=== PATIENT | female | born 1965 | race Caucasian/White ===

== ENCOUNTER 2016-02-13 07:03 | Inpatient (IN) | payer BC ==
[2016-02-11 16:20] VITALS: BMI 26.4
[2016-02-13] MEDS ORDERED: METHYLENE BLUE 1% 10 MG/1 ML VIAL ONE (07:59)
[2016-02-13] MEDS ORDERED: MIDAZOLAM HCL 2 MG/2 ML SINGLE DOSE VIAL ONE ×2 (08:28)
[2016-02-13] MEDS ORDERED: PROPOFOL 20 ML ONE ×16 (08:28→14:00)
[2016-02-13] MEDS ORDERED: EPINEPHrine/PF 1 MG/1 ML (1:1,000) AMPULE ONE (08:34)
[2016-02-13] MEDS ORDERED: DEXAMETHASONE SOD PHOSPHATE/PF 10 MG/ML SDV ONE (08:34)
[2016-02-13] MEDS ORDERED: LIDOCAINE HCL 1%, 10 MG/ML (20ML VIAL) ONE (08:34)
[2016-02-13] MEDS ORDERED: BUPIVACAINE HCL/PF 0.5% (5MG/ML) 10 ML VIAL ONE (08:35)
[2016-02-13] MEDS ORDERED: METHYLENE BLUE 1% 10 MG/1 ML VIAL NR ONE (10:30)
[2016-02-13] MEDS ORDERED: ceFAZolin SODIUM 1 GM VIAL IVPB ONE (10:35)
[2016-02-13] MEDS ORDERED: ceFAZolin SODIUM 1 GM VIAL ONE ×2 (10:37→14:24)
[2016-02-13] MEDS ORDERED: HYDROmorphone HCL/PF 1 MG/ML VIAL (FOR PYXIS CHARGING ONLY) ONE ×2 (10:53→11:38)
[2016-02-13] MEDS ORDERED: ONDANSETRON 4 MG/2 ML VIAL ONE ×2 (11:02→14:44)
[2016-02-13] MEDS ORDERED: DEXAMETHASONE SOD PHOSPHATE 4 MG/1 ML VIAL ONE (11:02)
[2016-02-13] MEDS ORDERED: SCOPOLAMINE HYDROBROMIDE 1 PATCH PATCH.TD72 ONE (11:13)
[2016-02-13] MEDS ORDERED: OXYCODONE/APAP 5/325MG COMBO TABLET PO PRN (12:27)
[2016-02-13] MEDS ORDERED: ACETAMINOPHEN 500 MG TABLET (FP) PO PRN (12:30)
[2016-02-13] MEDS ORDERED: LACTATED RINGERS SOLUTION 1,000 ML IV SCH (12:30)
[2016-02-13] MEDS ORDERED: ONDANSETRON 4 MG/2 ML VIAL IVPB PRN (12:30)
--- NOTE | 2016-02-13 12:33 | OP ---
Operative Note - Note: Pre-Operative Diagnosis: R breast DCIS, BRCA positive Operation: Bilateral nipple sparing mastectomy and Right sentinel lymph node biopsy Post-Operative Diagnosis: Same as Pre-op Surgeon: Merry Marquez Outfitter Cabin: Pierce Bermudez Anesthesia: General, Spinal, Epidural, Local, Fractional, Topical, Retrobulbar, Peribulbar, MAC Estimated Blood Loss (mls): 100
--- NOTE | 2016-02-13 13:49 | OP ---
DATE OF OPERATION: 02/13/2016 PREOPERATIVE DIAGNOSIS: Right breast ductal carcinoma in situ. POSTOPERATIVE DIAGNOSIS: Right breast ductal carcinoma in situ. PROCEDURE: Bilateral nipple-sparing mastectomy and right sentinel lymph node biopsy. SURGEON: Merry Marquez MD SLURRY TANK OPERATOR: Pierce Bermudez MD ESTIMATED BLOOD LOSS: 100 mL. DRAINS: None. COMPLICATIONS: None. DISPOSITION: Stable at the end of the procedure. ANESTHESIA: General/paravertebral block. INDICATION FOR PROCEDURE: The patient had a screening mammogram that noted calcifications behind the right nipple areolar complex. We did needle biopsy that showed ductal carcinoma in situ, but given her family history, I did genetic testing, and she turned out to be BRCA positive. Therefore, we had a discussion regarding prophylactic left mastectomy and a mastectomy for the DICS as well as the risk. She wanted to go ahead with this. The procedure was discussed with her. She met with Dr. Bermudez to discuss reconstruction options. PROCEDURE IN DETAIL: The patient was brought to [facility] and taken to nuclear medicine where technetium level sulfur colloid was injured into the right breast as an injection at the 10-11 o'clock areolar border. She was then brought up to the operating room. After induction of general anesthesia and IV antibiotics, 2.5 mL of Methylene blue dilated with 2.5 mL of injectable saline was injected into the right subareolar plexus. The breast was then massaged for 5 minutes. Both breasts and axilla were then prepped and draped in the usual sterile fashion. First a right sentinel node biopsy was performed. A 4-cm incision was made in the right axilla and carried down to the claviopectoral fascia to identify blue and minimally hot lymph node. This was sent as sentinel node number 1 hot and blue. There was a 2nd lymph node that I felt to be firm, and I took it as a nonsentinel lymph node since it did not have any blue dye or radioactivity. There was no other blue dysuria or radioactivity or pathologic-appearing lymph nodes in the right axilla. First a right mastectomy was performed. An incision was made in the inframammary crease to take an ellipse of skin as marked by Dr. Bermudez. Superior, inferior, medial, and lateral flaps were raised and the breast was deflected off the pectoralis muscle. The skin of the nipple was left intact. The right mastectomy was tagged with a long stitch lateral and a short stitch at the nipple and sent for permanent section. I took additional tissue behind the right nipple, and it was sent as tissue behind right nipple. Once hemostasis was assured, she was then left with Dr. Bermudez to do the reconstruction. I then moved onto the left mastectomy. Gowns, gloves, and instruments were changed, and the left mastectomy was performed again through the same inframammary incision to take an ellipse of skin as marked out by Dr. Bermudez. Superior, inferior, medial, and lateral flaps were raised, and a nipple-sparing mastectomy was performed, and the entire breast was deflected off the pectoralis muscle, tagged with a long stitch lateral and a short stitch at the nipple. It was sent to pathology for permanent section. Hemostasis was assured with direct pressure. Both nipples appeared viable at the end of the procedure, and I left the patient with Dr. Bermudez to finish the reconstruction part of the procedure. Rosy [id number]
--- NOTE | 2016-02-13 15:08 | OP ---
Operative Note - Note: Operative Date: 02/13/16 Pre-Operative Diagnosis: Breast Cancer Operation: Bilateral Immediate Breast Reconstruction with Insertion of Tissue Expanders and Perforated Aloderm Sheets. Implants: [place] CPX4 Tall Height Tissue Expanders Style 9300 650cc Post-Operative Diagnosis: Same as Pre-op Surgeon: Pierce Bermudez Anesthesia: General Drains & Tubes with Location: MARGIE Drains 19Fr Round, 1 per side Operative Report Dictated: Yes
[2016-02-13] MEDS ORDERED: HYDROmorphone HCL CARPU-JECT 2 MG/1 ML DISP.SYRIN ONE (15:31)
[2016-02-13] MEDS ORDERED: ONDANSETRON 4 MG/2 ML VIAL IVPUSH PRN (15:33)
[2016-02-13] MEDS ORDERED: PROMETHAZINE HCL 25 MG/1 ML VIAL IVPUSH PRN (15:33)
[2016-02-13] MEDS: HYDROmorphone HCL CARPU-JECT 1 MG/1 ML DISP.SYRIN IVPUSH PRN ×3 (15:40→16:10)
[2016-02-13] MEDS ORDERED: ACETAMINOPHEN 325 MG TABLET (FP) PO PRN ×2 (16:07)
[2016-02-13] MEDS ORDERED: oxyCODONE HCL 5 MG TABLET PO PRN (16:07)
--- NOTE | 2016-02-13 17:32 | OP ---
DATE OF OPERATION: 02/13/2016 DATE OF DICTATION: 02/13/2016 PREOPERATIVE DIAGNOSIS: Breast cancer. POSTOPERATIVE DIAGNOSIS: Breast cancer. PROCEDURE PERFORMED: Bilateral immediate breast reconstruction with insertion of tissue expanders and perforated Alloderm sheaths. SURGEON: Pierce Maldonado M.D. ANESTHESIA: General via endotracheal tube. PROCEDURE: The patient is on the operating room table in the supine position at the conclusion of bilateral nipple sparing mastectomies performed by Dr. Marquez via inframammary incision. Of note, the patient has a history of having had a breast reduction many years ago and the incision was designed excising an elliptical segment at the inframammary fold, reducing the length of the vertical limb to approximately 6 cm. The patient is now at the conclusion of this procedure, and the right breast reconstruction was addressed first. The subpectoral plane was entered and developed using electrocautery from the beginning in the inferolateral aspect of the muscle. The subpectoral pocket was created, and the inferior and inferomedial attachments of the muscle were divided. A medium sized sheath of perforated shaped Alloderm was brought onto the field and soaked for 10 minutes in saline solution. This Alloderm was now sutured dermis side up to the inferolateral margin of the pectoralis major muscle using 2-0 Vicryl suture in interrupted fashion overlapping the Alloderm on the muscle posteriorly. The tissue monument setter was then selected, was a [place] tall height CPX4 tissue monument setter 650 mL in size. Approximately 50 mL of saline was instilled into the tissue monument setter, and all air was removed. The monument setter was placed in proper position and orientation was confirmed. The Alloderm was then reflected over the inferior pole of the tissue monument setter and was sutured in place along the inframammary fold using 2-0 Vicryl suture in interrupted fashion. Laterally, the Alloderm was sutured to the chest wall to restrict the lateral movement of the tissue monument setter beyond the pocket. A 19 [place] round Sander-Javed drain was inserted through a separate stab incision in the anterior axillary line. The wound was then closed in layered fashion. Deep tissues were closed with number 3-0 Biosyn suture in a fashion, and skin was closed with number 4-0 V-Loc 90 in a continuous interdermal fashion. The wound was secured with Steri-Strips and the port finder was used to identify the tissue monument setter port, and additional saline was instilled to a total of 250 mL at the conclusion of the case. A similar procedure was performed on the left side using an identical tissue monument setter which was also filled to 250 mL at the conclusion of the procedure. The right axillary wound was closed in layered fashion closing deep tissues with number 3-0 Biosyn suture in a fashion, and a more superficial layer of 4-0 Biosyn interdermal sutures was used. This was also secured with Steri-Strips. Sterile dressings were then applied consisting of sterile gauze and combine pads in a compressive fashion held in place with a surgical bra. The patient was then awoken from anesthesia without any difficulty and was taken from the operating room to the recovery room in satisfactory condition, having tolerated the procedure well. PIERCE MALDONADO M.D. JOSÉ [id number]
[2016-02-13] MEDS ORDERED: HYDROmorphone *PCA* 10MG/50ML DISP.SYRIN PCA SCH (17:45)
[2016-02-13] MEDS: CEFAZOLIN 1 GM/D5W 50 ML IVPB SCH (19:00)
[2016-02-13] MEDS: LACTATED RINGERS SOLUTION 1,000 ML IV SCH (19:51)
[2016-02-13] MEDS: HYDROmorphone HCL CARPU-JECT 1 MG/1 ML DISP.SYRIN IVPB PRN ×2 (20:06→23:51)
[2016-02-13] MEDS: oxyCODONE HCL 5 MG TABLET PO PRN (22:45)
[2016-02-14] MEDS: CEFAZOLIN 1 GM/D5W 50 ML IVPB SCH ×2 (01:48→09:13)
[2016-02-14] MEDS: LACTATED RINGERS SOLUTION 1,000 ML IV SCH (01:52)
[2016-02-14] MEDS: HYDROmorphone HCL CARPU-JECT 1 MG/1 ML DISP.SYRIN IVPB PRN ×2 (04:45→10:08)
--- NOTE | 2016-02-14 08:59 | PN ---
Progress Note (short form) - Note Progress Note: POD1 s/p bl mastectomy and R sln. Doing well. afebrile, Aldo draining Mastectomy flaps and nipple viable. discharge home today.
--- NOTE | 2016-02-14 12:44 | PN ---
Progress Note (short form) - Note Progress Note: Anesthesia postop note 50 y/o F s/p GA for bilateral mastectomy and reconstruction, paravertebral blocks and chassis inspector for postop pain control. POD#1, vss, aaox3, pain fairly well controlled, to be discharged today. No anesthesia complications.
[2016-02-14 13:11] VITALS: BP 118/50
[2016-02-14 14:20] VITALS: PULSE 86; TEMP 99.2
[2016-02-14] MEDS: oxyCODONE HCL 5 MG TABLET PO PRN (15:07)
--- NOTE | 2016-02-17 13:22 | PATH ---
Surgical Pathology Report Patient Name: SUKI CABRERA [facility]. Rec. #: [id number] /Age/Gender: 1965 (Age: 50) / F Account: [id number] Location: [address] [place] [address] Taken: 02/13/2016 Received: 02/13/2016 Reported: 02/17/2016 Physicians: Merry Marquez M.D. Specimen(s) Received A: RIGHT AXILLARY SENTINEL LYMPH NODE B: RIGHT AXILLARY NON-SENTINEL LYMPH NODE C: TISSUE BEHIND RIGHT NIPPLE D: RIGHT MASTECTOMY E: RIGHT AXILLARY NON-SENTINEL LYMPH NODE F: LEFT MASTECTOMY Clinical History Right DCIS Final Diagnosis A. SENTINEL LYMPH NODE, RIGHT AXILLARY, BIOPSY: ONE LYMPH NODE NEGATIVE FOR METASTATIC CARCINOMA (0/1). B. NON-SENTINEL LYMPH NODE, RIGHT AXILLARY, LYMPHADENECTOMY: ONE LYMPH NODE NEGATIVE FOR METASTATIC CARCINOMA (0/1). C. BREAST TISSUE, BEHIND RIGHT NIPPLE, BIOPSY: BENIGN BREAST TISSUE. D. BREAST, RIGHT, NIPPLE SPARING MASTECTOMY: DUCTAL CARCINOMA IN SITU (DCIS), INTERMEDIATE NUCLEAR GRADE, CRIBRIFORM TYPE, WITH FOCAL NECROSIS, FOCAL CALCIFICATIONS AND FOCAL LOBULAR EXTENSIONS. DCIS EXTENT: DCIS IS PRESENT ON THREE SLIDES WITH THE LARGEST EXTENT ON ONE SLIDE OF 0.6 CM; ASSOCIATED WITH PRIOR BIOPSY SITE CHANGES. SURGICAL RESECTION MARGINS: NEGATIVE FOR DCIS; CLOSEST RESECTION MARGIN (ANTERIOR) IS >1.0 CM AWAY FROM DCIS. SKIN: NOT INVOLVED BY DCIS. SURROUNDING BREAST TISSUE: FIBROCYSTIC CHANGE WITH CYSTS APOCRINE METAPLASIA, FOCAL ADENOSIS, DUCT DILATATION, CYST FORMATION AND STROMAL FIBROSIS; FOCAL PSEUDOLACTATIONAL CHANGES. PATHOLOGIC STAGING: REFER TO CHECKLIST BELOW. RECEPTOR STATUS: REFER TO CHECKLIST BELOW. Comment: Immunohistochemical stain for E-cadherin performed and interpreted on block D2 [facility] shows strong membranous positivity for E-cadherin supports and ductal phenotype. Immunohistochemical stains for p63 and SMM-HC performed and interpreted at [facility] on block B2 shows preserved myoepithelial cells in the foci of DCIS. E. NON-SENTINEL LYMPH NODE, RIGHT AXILLARY, LYMPHADENECTOMY: ONE LYMPH NODE NEGATIVE FOR METASTATIC CARCINOMA (0/1). F. BREAST, LEFT, NIPPLE SPARING MASTECTOMY: BENIGN BREAST TISSUE WITH FIBROCYSTIC CHANGE WITH DUCT DILATATION AND STROMAL FIBROSIS; FIBROADENOMA (0.8 CM) BENIGN SKIN. Comments DCIS of Breast: Surgical Pathology Cancer Case Summary Based on AJCC/UICC TNM, 7th edition Procedure _x_ Nipple sparing mastectomy Lymph Node Sampling (select all that apply) (required only if lymph nodes are present in the specimen) _x_ [place] and non-sentinel lymph nodes Specimen Laterality _x_ Right Estimated size (extent) of DCIS (greatest dimension using gross and microscopic evaluation): at least 6 mm and: Number of blocks with DCIS: 3 Number of blocks examined: 19 Nuclear Grade _x_ Grade II (intermediate) Necrosis _x_ Present, focal (small foci or single cell necrosis) Microcalcifications _x_ Present in DCIS Margins _x_ Margins uninvolved by DCIS Distance from closest margin (anterior): >1.0 cm Lymph Nodes (required only if lymph nodes are present in the specimen) Total number of nodes examined (sentinel and nonsentinel): 3 Number of sentinel nodes examined: 1 Lymph Node Involvement Number of lymph nodes with macrometastases (>2 mm): 0 Number of lymph nodes with micrometastases (>0.2 mm to 2 mm and/or >200 cells): 0 Number of lymph nodes with isolated tumor cells (=0.2 mm and =200 cells): 0 Size of largest metastatic deposit: n/a Pathologic Staging (pTNM) Primary Tumor (pT):pTis(DCIS) Regional Lymph Nodes (pN): pN0 Biomarker Studies Results of ER and RI studies performed on block# at [facility] are as follows: ER (clone [id number] mouse monoclonal antibody by [employer]): >95% nuclear staining with strong to moderate intensity (Positive). RI (clone16 mouse monoclonal antibody by [employer]): 0% nuclear staining with strong/ moderate/weak intensity (Negative). Positive and negative controls (internal if applicable) show appropriate results. Formalin fixation and cold ischemic times are within current ASCO/CAP recommendations for ER, RI and Her2 testing. Electronically Signed Liu Elias M.D. Gross Description A. Received in formalin, labeled "right axillary sentinel node #1" is a 2.9 x 1.3 x 0.6 cm proctor-blue, irregular lymph node with attached fat. The specimen is bisected and entirely submitted in 2 cassettes. B. Received in formalin, labeled "right axillary non-sentinel lymph node" is a 0.7 x 0.4 x 0.2 cm proctor, irregular lymph node with attached fat. The specimen is submitted in toto in one cassette. C. Received in formalin, labeled "tissue behind right nipple" are 2 proctor-yellow, irregular portions of fibroadipose tissue measuring 0.6 x 0.4 x 0.2 cm and 1.4 x 0.5 x 0.2 cm. The specimens are submitted in toto in one cassette. D. Received in formalin, labeled "right mastectomy," is a 911 gram, 20.5 x 18.5 x 5.0 cm. right mastectomy specimen with a short suture marking the nipple and a long suture marking the lateral edge, per the surgeon. There is a 12.5 x 1.5 cm proctor, elliptical portion of skin with a central linear scar present at the inferior-anterior aspect of the specimen, 9 cm inferior to the suture marking the nipple. The deep margin is inked black and the anterior soft tissue margin is inked blue. The specimen is serially sectioned from lateral to medial. Sectioning reveals a focus of firm fibrous tissue in the area of the short suture (retroareolar region). There is a biopsy clip identified within the firm fibrous tissue. No discrete masses are identified. The remaining breast parenchyma displays multiple foci of dense white fibrous tissue. Information Assoc sections are submitted in 19 cassettes as follows: 1-section with biopsy clip from retroareolar region; 7-9-hlfekftklf sections from previous biopsy site; 8-0-tzjyukksnp retroareolar tissue; 9-10-upper outer quadrant; 11-12-lower outer quadrant; 13-14-upper inner quadrant; 15-16-lower inner quadrant; 17-anterior soft tissue margin; 18-skin; 19-deep margin. Time to fixation:<1h Total formalin fixation time: ~7h E. Received in formalin, labeled "right axillary non-sentinel lymph node #2" is a 2.8 x 2.1 x 0.3 cm aggregate of yellow, lobulated adipose tissue, possibly containing a lymph node. The specimen is submitted in toto in one cassette. F. Received in formalin, labeled "left mastectomy" is a 1086 gram, 23.5 x 16.5 x 4.5 cm. left mastectomy specimen with a short suture marking the nipple and a long suture marking the lateral edge, per the surgeon. There is a 17.0 x 2.2 cm proctor, elliptical portion of skin with a central linear scar present at the inferior-anterior aspect of the specimen, 9 cm inferior to the suture marking the nipple. The deep margin is inked black and the anterior soft tissue margin is inked blue. The specimen is serially sectioned from medial to lateral. Sectioning reveals multifocal dense white fibrous tissue. No definitive masses are identified. Information Assoc sections are submitted in 17 cassettes as follows: 9-6-blqcvrwzopvo tissue; 4-7-upper outer quadrant; 8-9-lower outer quadrant; 10-12-upper inner quadrant; 13-14-lower inner quadrant; 15-anterior soft tissue margin; 16-skin; 17-deep margin. Time to fixation: <1h Total formalin fixation time: ~7h 02/13/201602/13/2016
== END 2016-02-14 17:14 | disposition home or self-care (01) | DRG 581 ==
LOC: JSAMEDAYSX 07:03 → J6S 17:50
PROVIDERS: ADMIT Surgery; ATTEND Surgery
PROC: 0HTV0ZZ Resection of Bilateral Breast, Open Approach (ICD-10-PCS; principal; 2016-02-13 09:30)
PROC: 07B50ZX Excision of Right Axillary Lymphatic, Open Approach, Diagnostic (ICD-10-PCS; 2016-02-13 09:30)
PROC: 0HUV0KZ Supplement Bilateral Breast with Nonautologous Tissue Substitute, Open Approach (ICD-10-PCS; 2016-02-13 09:30)
PROC: 0HHV0NZ Insertion of Tissue Expander into Bilateral Breast, Open Approach (ICD-10-PCS; 2016-02-13 09:30)
DX: D05.11 Intraductal carcinoma in situ of right breast (principal); E78.00 Pure hypercholesterolemia, unspecified
CPT/HCPCS: 78195-TC; 88305-TC; 88307-TC; 88341-TC; 94760; A9541

== ENCOUNTER 2016-09-04 06:25 | Day surgery (SDC) | payer BC ==
[2016-09-03 13:55] VITALS: BMI 26.4
[2016-09-04] MEDS ORDERED: ACETAMINOPHEN INJECTION 100 ML IVPB ONE (07:07)
[2016-09-04] MEDS ORDERED: ePHEDrine SULFATE 50 MG/1 ML AMPULE ONE (07:11)
[2016-09-04] MEDS ORDERED: ROCURONIUM BROMIDE 50 MG/5 ML VIAL ONE (07:12)
[2016-09-04] MEDS ORDERED: MIDAZOLAM HCL 2 MG/2 ML SINGLE DOSE VIAL ONE ×2 (07:12)
[2016-09-04] MEDS ORDERED: SUCCINYLCHOLINE CHLORIDE 200 MG/10 ML VIAL ONE (07:12)
[2016-09-04] MEDS ORDERED: PROPOFOL 20 ML ONE ×3 (07:12→09:15)
[2016-09-04] MEDS ORDERED: ceFAZolin SODIUM 1 GM VIAL ONE (07:25)
[2016-09-04] MEDS ORDERED: DEXAMETHASONE SOD PHOSPHATE 4 MG/1 ML VIAL ONE (07:26)
[2016-09-04] MEDS ORDERED: SODIUM CHLORIDE 0.9% P/F 10 ML VIAL IJ ONE (07:26)
[2016-09-04] MEDS ORDERED: LIDOCAINE HCL 1%, 10 MG/ML (20ML VIAL) ONE (07:27)
[2016-09-04] MEDS ORDERED: GLYCOPYRROLATE 0.2 MG/1 ML VIAL ONE (09:12)
[2016-09-04] MEDS ORDERED: NEOSTIGMINE METHYLSULFATE 0.5 MG/ML - 10 ML MDV ONE (09:13)
[2016-09-04] MEDS ORDERED: oxyCODONE HCL 5 MG TABLET PO PRN (10:28)
[2016-09-04] MEDS ORDERED: ONDANSETRON 4 MG/2 ML VIAL IVPUSH PRN (10:28)
[2016-09-04] MEDS ORDERED: PROMETHAZINE HCL 25 MG/1 ML VIAL IVPUSH PRN (10:28)
[2016-09-04] MEDS ORDERED: LACTATED RINGERS SOLUTION 1,000 ML IV SCH (10:30)
--- NOTE | 2016-09-04 10:34 | OP ---
Operative Note - Note: Operative Date: 09/04/16 Pre-Operative Diagnosis: History of Right Breast Cancer, Presence of Tissue Expanders Operation: Bilateral Staged Breast Reconstruction, Removal of Tissue Expanders, Revision of Implant Pockets, Partial Removal of Alloderm (Left Breast), Insertion of Silicone Prostheses Implants: [place] MemoryShape Tall Height Implants 555cc x 2 Post-Operative Diagnosis: Same as Pre-op Surgeon: Pierce Bermudez Anesthesiologist/RAIL CAR WELDER: Mazin Aranda Anesthesia: General Specimens Removed: Bilateral Tissue Expanders Operative Report Dictated: Yes
[2016-09-04 13:17] VITALS: TEMP 97.9
[2016-09-04] MEDS ORDERED: oxyCODONE HCL 5 MG TABLET ONE (13:54)
[2016-09-04] MEDS ORDERED: oxyCODONE HCL 5 MG TABLET PO ONE (13:59)
[2016-09-04 14:32] VITALS: BP 126/73; PULSE 82
--- NOTE | 2016-09-05 10:53 | OP ---
DATE OF OPERATION: 09/04/2016 PREOPERATIVE DIAGNOSIS: The patient has a history of right breast cancer with presence of tissue expanders. POSTOPERATIVE DIAGNOSIS: The patient has a history of right breast cancer with presence of tissue expanders. PROCEDURE PERFORMED: Bilateral staged breast reconstruction with removal of tissue expanders, revision of implant pockets, partial removal of Alloderm (left breast only) and insertion of silicone prostheses. SURGEON: Pierce Bermudez MD ANESTHESIA: General via endotracheal tube. BRIEF HISTORY: The patient is a 51-year-old female who is status post bilateral nipple-sparing mastectomies followed by immediate reconstruction with tissue lion trainer insertion. She now presents for exchange of tissue expanders to permanent prostheses. Of note, the right tissue lion trainer ruptured approximately 1 month prior to this procedure. DESCRIPTION OF PROCEDURE: The patient was on the operating table in the supine position, and general anesthesia was administered by the anesthesiologist. The area of the chest was prepped and draped in the usual sterile fashion. The right breast was addressed first. A portion of the previous inframammary incision was re-opened with a No. 15 scalpel blade approximately 15 cm in length. This was carried down through subcutaneous tissues using electrocautery until the capsule tissue lion trainer was noted. The tissue lion trainer was removed without any difficulty. A small amount of seroma fluid was removed as well. The implant pocket was expanded based upon markings made on the patient preoperatively in the standing position. The pocket was extended both superiorly, laterally, and medially as defined. This dissection of the pocket was associated by using fiberoptic lighted retractors. The implant selected was a [place] MemoryShape Tall Height textured implant of 555 mL in size. This was inserted with the assistance of a Dial Funnel using the stripe on the implant for orientation of the midline. Once inserted, the fiberoptic lighted retractor was used again to further adjust the pocket, and closure was begun. Closure was performed in layered fashion. Deep tissues were closed with No. 3-0 Biosyn suture in interrupted buried fashion and skin was closed with 4-0 V-Lock 90 suture in continuous intradermal fashion. Several 4-0 nylon skin sutures were placed as well. A similar procedure was performed on the left breast; however, during dissection, it was noted that the previously placed Alloderm was poorly incorporated inferiorly, and this portion of Alloderm was excised. The pocket was adjusted serially to the right breast, and the same size and style implant was used. Closure was performed in a similar fashion, and sterile dressings were then applied and secured with a surgical bra. The patient was then awoken from anesthesia without any difficulty and taken from the operating room to the recovery room in satisfactory condition having tolerated the procedure well. Rosy [id number] cc: Merry Marquez MD
== END 2016-09-04 14:41 | disposition home or self-care (01) ==
LOC: JASU-SURG 06:25
PROVIDERS: ATTEND Plastic Surgery
PROC: 0HPU0NZ Removal of Tissue Expander from Left Breast, Open Approach (ICD-10-PCS; principal; 2016-09-04 08:00)
PROC: 0HPT0NZ Removal of Tissue Expander from Right Breast, Open Approach (ICD-10-PCS; 2016-09-04 08:00)
PROC: 0HRV0JZ Replacement of Bilateral Breast with Synthetic Substitute, Open Approach (ICD-10-PCS; 2016-09-04 08:00)
DX: Z85.3 Personal history of malignant neoplasm of breast (principal); Z90.13 Acquired absence of bilateral breasts and nipples
CPT/HCPCS: 94760

== ENCOUNTER 2017-02-19 13:56 | Inpatient (IN) | payer BC ==
[2017-02-18 15:01] VITALS: BMI 25.5
[2017-02-23 06:56] LABS: HEMATOCRIT 40.8 % (32.4-45.2); HEMOGLOBIN 13.2 GM/dL (10.7-15.3); MCH 28.8 pg (25.7-33.7); MCHC 32.3 g/dl (32.0-36.0); MEAN CELL VOLUME 89.2 fl (80-96); MEAN PLT VOLUME 8.6 fl (7.5-11.1); PLATELET COUNT 240 K/MM3 (134-434); RBC 4.57 M/mm3 (3.60-5.2); WHITE BLOOD COUNT 5.6 K/mm3 (4.0-10.0)
[2017-02-23] MEDS ORDERED: HEPARIN NA (PORCINE) 5,000 UNITS/ML 1ML VIAL ONE (07:11)
[2017-02-23] MEDS ORDERED: BUPIVACAINE HCL/PF 0.25% (2.5MG/ML) 10 ML VIAL ONE (07:11)
[2017-02-23] MEDS ORDERED: PAPAVERINE HCL 30 MG/1 ML 10 ML VIAL NR ONE ×2 (07:11→13:18)
[2017-02-23] MEDS ORDERED: LIDOCAINE HCL 4% PRESERVE-FREE 5 ML AMP ONE (07:12)
[2017-02-23] MEDS ORDERED: PROPOFOL 20 ML ONE ×9 (07:34→17:43)
[2017-02-23] MEDS ORDERED: ROCURONIUM BROMIDE 50 MG/5 ML VIAL ONE ×3 (07:35→11:07)
[2017-02-23] MEDS ORDERED: MIDAZOLAM HCL 2 MG/2 ML SINGLE DOSE VIAL ONE ×3 (07:35→21:11)
[2017-02-23] MEDS ORDERED: fentaNYL CITRATE 250 MCG/5 ML VIAL ONE (07:35)
[2017-02-23] MEDS ORDERED: SCOPOLAMINE HYDROBROMIDE 1 PATCH PATCH.TD72 ONE (07:50)
[2017-02-23] MEDS ORDERED: ceFAZolin SODIUM 1 GM VIAL IVPB ONE (08:12)
[2017-02-23] MEDS ORDERED: BUPIVACAINE LIPOSOME/PF (EXPAREL) 266 MG/20 ML VIAL NR ONE (09:00)
[2017-02-23] MEDS ORDERED: DESFLURANE GAS 240 ML BOTTLE IH ONE (11:54)
[2017-02-23] MEDS ORDERED: VECURONIUM BROMIDE 10 MG VIAL ONE ×2 (13:40→13:41)
[2017-02-23] MEDS ORDERED: ceFAZolin SODIUM 1 GM VIAL ONE ×3 (16:14→16:30)
[2017-02-23] MEDS ORDERED: DEXAMETHASONE SOD PHOSPHATE 4 MG/1 ML VIAL ONE (16:55)
[2017-02-23] MEDS ORDERED: GLYCOPYRROLATE 0.2 MG/1 ML VIAL ONE (17:54)
[2017-02-23] MEDS ORDERED: NEOSTIGMINE METHYLSULFATE 0.5 MG/ML - 10 ML MDV ONE (17:54)
[2017-02-23] MEDS ORDERED: oxyCODONE HCL 5 MG TABLET PO PRN (18:35)
[2017-02-23] MEDS ORDERED: diazePAM 5 MG TABLET PO PRN (18:35)
[2017-02-23] MEDS ORDERED: ONDANSETRON 4 MG/2 ML VIAL IVPUSH PRN (18:39)
--- NOTE | 2017-02-23 18:39 | OP ---
<Jazmin Chaves - Last Filed: 02/23/17 18:35> Operative Note - Note: Operative Date: 02/23/17 Pre-Operative Diagnosis: Breast ca, Aquired chest wall deformity Operation: Bilateral breast implant removal with capsulectomy, bilateral BEV reconstruction Findings: Bilateral aquired chest wall deformity Implants: none Post-Operative Diagnosis: Same as Pre-op Surgeon: Pierce Bermudez (Eddie gonzalez PA-C) Auto Transmission Mechanic: Rigoberto Lima (Jazmin Chaves PA-C) Anesthesiologist/WALLPAPER HANGER: Alan Lee Anesthesia: General Estimated Blood Loss (mls): 100 Drains & Tubes with Location: 6 MARGIE drains, two each breast, and two lower abdomen <Rigoberto Lima - Last Filed: 02/24/17 06:21> Operative Note - Note: Operation: 1) Bilateral breast implant removal with capsulectomies. 2) Right breast reconstruction with BEV flap. 3) Left breast reconstruction with MS- TRAM free flap. 4) Partial resection of bilateral 3rd ribs. 5) Exploration of bilateral internal mammary vessels. 6) Intraoperative angiography using SPY system. 7) Processing and interpretation of intraoperative angiography images. 8) Bilateral, US-guided TAP blocks. 9) Reinforcement of anterior abdominal wall with mesh
[2017-02-23] MEDS ORDERED: HYDROmorphone HCL CARPU-JECT 2 MG/1 ML DISP.SYRIN IVPB PRN ×2 (18:40→19:51)
[2017-02-23] MEDS ORDERED: DEXTROSE 5%-0.45% SALINE 1,000 ML IV SCH (18:45)
[2017-02-23] MEDS ORDERED: ASPIRIN 325 MG TABLET PO ONE (19:00)
[2017-02-23] MEDS ORDERED: PROMETHAZINE HCL 25 MG/1 ML VIAL IVPUSH PRN (19:20)
[2017-02-23] MEDS ORDERED: PROMETHAZINE HCL 25 MG/1 ML VIAL IVPB PRN (19:20)
[2017-02-23] MEDS ORDERED: ACETAMINOPHEN 1000 MG/100 ML VIAL (NON FORMULARY) IVPB PRN (19:22)
[2017-02-23] MEDS ORDERED: HYDROmorphone *PCA* 10MG/50ML DISP.SYRIN PCA SCH (19:30)
[2017-02-23] MEDS ORDERED: LACTATED RINGERS SOLUTION 1,000 ML IV SCH (19:30)
[2017-02-23] MEDS ORDERED: PHENYLEPHRINE HCL 10 MG/1 ML SINGLE DOSE VIAL ONE (19:42)
[2017-02-23] MEDS ORDERED: ACETAMINOPHEN INJECTION 100 ML IVPB ONE (20:32)
[2017-02-23] MEDS ORDERED: MIDAZOLAM HCL 5 MG/1 ML Single Dose Vial ONE (21:00)
[2017-02-23] MEDS: MIDAZOLAM HCL 2 MG/2 ML SINGLE DOSE VIAL IVPUSH ONE ×2 (21:05→21:20)
[2017-02-23] MEDS ORDERED: HALOPERIDOL LACTATE 5 MG/ML IVPUSH ONE (21:28)
[2017-02-23] MEDS ORDERED: DOCUSATE SODIUM 100 MG CAPSULE (FP) PO SCH (22:00)
[2017-02-23] MEDS ORDERED: FLUoxetine HCL 10 MG CAPSULE (FP) PO SCH (22:00)
[2017-02-23 22:06] LABS: HEMATOCRIT 26.9 % (32.4-45.2); HEMOGLOBIN 8.7 GM/dL (10.7-15.3); MCH 28.7 pg (25.7-33.7); MCHC 32.2 g/dl (32.0-36.0); MEAN CELL VOLUME 89.2 fl (80-96); MEAN PLT VOLUME 8.7 fl (7.5-11.1); PLATELET COUNT 172 K/MM3 (134-434); RBC 3.01 M/mm3 (3.60-5.2); RDW 14.2 % (11.6-15.6); WHITE BLOOD COUNT 5.8 K/mm3 (4.0-10.0)
[2017-02-23 22:36] LABS: ALBUMIN 2.3 g/dl (3.4-5.0); ANION GAP 11 (8-16); BLOOD UREA NITROGEN 16 mg/dL (7-18); CHLORIDE 110 mmol/L (98-107); CO2 20 mmol/L (21-32); CREATININE 0.6 mg/dL (0.55-1.02); GLUCOSE,RANDOM 154 mg/dL (74-106); POTASSIUM 3.6 mmol/L (3.5-5.1); SGOT/AST 12 U/L (15-37); SGPT/ALT 20 U/L (12-78); SODIUM 141 mmol/L (136-145)
[2017-02-23 22:38] LABS: ALK PHOS 48 U/L (45-117); BILIRUBIN,TOTAL 0.4 mg/dL (0.2-1.0); TOT PROT 4.4 g/dl (6.4-8.2)
--- NOTE | 2017-02-23 23:26 | CONSULT ---
Consult Consult Specialty:: Pulm/CCM Reason for Consultation:: Post-op breast recontruction, breast flap monitoring - History of Present Illness History of Present Illness: 51yow with PMHx of breast Ca s/p resection and breast implants admitted with bilat chest wall deformity r/t previous implants and is now s/p Bilateral breast implant removal with capsulectomy and bilateral BEV reconstruction. In OR: OR time ~8-10hrs with ~150cc EBL, she received 5100c fluid, UOP 600cc. Post extubation became agitated and delirious. Improved after Haldol 3mg and Versed 3mg IV. Breast flap with doppler pulses. Six MARGIE drains placed. 2 to each breast flap and 2 to abdomen. She was transfer to ICU for monitoring. Rec'd in ICU calm and in NAD. Breast flaps pinkish , with cap refill~1sec and doppler pulses. Pt calm and appropriate when awake. JPs with small amt bloody drainage. - History Source History Provided By: Medical Record Limitations to Obtaining History: Clinical Condition (Sedated) - Past Medical History ...LMP: 02/20/12 - Past Surgical History Past Surgical History: Yes: Mastectomy - Alcohol/Substance Use Hx Alcohol Use: Yes (RARE) - Smoking History Smoking history: Never smoked Have you smoked in the past 12 months: No Aproximately how many cigarettes per day: 0 Home Medications - Allergies Allergies/Adverse Reactions: Allergies Allergy/AdvReac Type Severity Reaction Status Date / Time avocado Allergy "HIVES" Verified 02/23/17 06:53 chocolate flavor Allergy "HIVES" Verified 02/23/17 06:53 No Known Drug Allergies Allergy Verified 02/23/17 06:53 BUTTER Allergy "HIVES" Uncoded 02/23/17 06:53 NUTS Allergy "BUTTER" Uncoded 02/23/17 06:53 - Home Medications Home Medications: Ambulatory Orders Fluoxetine HCl [Prozac] 10 mg PO HS 02/11/16 Family Disease History - Family Disease History Family History: Unable to Obtain Review of Systems Unable to obtain ROS, reason: Pt sedated - Review of Systems Constitutional: reports: No Symptoms Eyes: reports: No Symptoms HENT: reports: No Symptoms Neck: reports: No Symptoms Cardiovascular: reports: No Symptoms Respiratory: reports: No Symptoms Gastrointestinal: reports: No Symptoms Genitourinary: reports: No Symptoms Breasts: reports: Breast Implants, Other (Breast flaps pink) Physical Exam Vital Signs: Vital Signs Temperature 99.6 F 02/23/17 18:56 Pulse Rate 108 H 02/23/17 18:56 Respiratory Rate 20 02/23/17 18:56 Blood Pressure 107/63 02/23/17 18:56 O2 Sat by Pulse Oximetry (%) 98 02/23/17 18:56 Constitutional: Yes: Well Nourished, No Distress, Calm Eyes: Yes: Occular Prosthesis HENT: Yes: Normocephalic Neck: Yes: Supple Cardiovascular: Yes: Regular Rate and Rhythm Respiratory: Yes: CTA Bilaterally Gastrointestinal: Yes: Normal Bowel Sounds, Soft Renal/: Yes: Ramirez Present Breast(s): Yes: Other (Lt breast flap pink skin, +pulse; Rt breast flap , pinkish tissue and + pulse, JPs intact) Edema: No Peripheral Pulses WNL: Yes Integumentary: Yes: WNL, Bruising Wound/Incision: Yes: Open to air ...Motor Strength: WNL Labs: CBC, BMP 02/23/17 21:50 02/23/17 21:50 CBC,CMP WBC 5.8 K/mm3 (4.0-10.0) 02/23/17 21:50 RBC 3.01 M/mm3 (3.60-5.2) L D 02/23/17 21:50 Hgb 8.7 GM/dL (10.7-15.3) L D 02/23/17 21:50 Hct 26.9 % (32.4-45.2) L D 02/23/17 21:50 MCV 89.2 fl (80-96) 02/23/17 21:50 MCH 28.7 pg (25.7-33.7) 02/23/17 21:50 MCHC 32.2 g/dl (32.0-36.0) 02/23/17 21:50 RDW 14.2 % (11.6-15.6) 02/23/17 21:50 Plt Count 172 K/MM3 (134-434) D 02/23/17 21:50 MPV 8.7 fl (7.5-11.1) 02/23/17 21:50 Total Counted 100 02/23/17 21:50 Neutrophils % No Result Required. 02/23/17 21:50 Neutrophils % (Manual) 59.0 % (42.8-82.8) 02/23/17 21:50 Band Neutrophils % 18.0 % 02/23/17 21:50 Lymphocytes % No Result Required. 02/23/17 21:50 Lymphocytes % (Manual) 17.0 % (8-40) 02/23/17 21:50 Monocytes % (Manual) 6 % (3.8-10.2) 02/23/17 21:50 Differential Comment Rbc normal 02/23/17 21:50 Platelet Estimate Adequate 02/23/17 21:50 Sodium 141 mmol/L (136-145) 02/23/17 21:50 Potassium 3.6 mmol/L (3.5-5.1) 02/23/17 21:50 Chloride 110 mmol/L (98-107) H 02/23/17 21:50 Carbon Dioxide 20 mmol/L (21-32) L 02/23/17 21:50 Anion Gap 11 (8-16) 02/23/17 21:50 BUN 16 mg/dL (7-18) 02/23/17 21:50 Creatinine 0.6 mg/dL (0.55-1.02) 02/23/17 21:50 Creat Clearance w eGFR > 60 (>60) 02/23/17 21:50 Random Glucose 154 mg/dL (74-106) H 02/23/17 21:50 Calcium 7.0 mg/dL (8.5-10.1) L 02/23/17 21:50 Total Bilirubin 0.4 mg/dL (0.2-1.0) D 02/23/17 21:50 AST 12 U/L (15-37) L 02/23/17 21:50 ALT 20 U/L (12-78) 02/23/17 21:50 Alkaline Phosphatase 48 U/L (45-117) 02/23/17 21:50 Total Protein 4.4 g/dl (6.4-8.2) L D 02/23/17 21:50 Albumin 2.3 g/dl (3.4-5.0) L 02/23/17 21:50 Active Medications Acetaminophen (Ofirmev Injection -) 1,000 mg IVPB Q6H PRN PRN Reason: PAIN Last Admin: 02/23/17 19:35 Dose: 1,000 mg Aspirin (Asa -) 325 mg PO DAILY [facility] Diazepam (Valium -) 5 mg PO Q8H PRN PRN Reason: ANXIETY Diphenhydramine HCl (Benadryl Injection -) 25 mg IVPB Q4H PRN PRN Reason: FOR ITCHING Docusate Sodium (Colace -) 100 mg PO BID [facility] Enoxaparin Sodium (Lovenox -) 40 mg SQ DAILY [facility] Fentanyl (Sublimaze Injection -) 50 mcg IVPUSH [id number] PRN PRN Reason: PAIN-PACU ORDER X 4 DOSES ONLY Last Admin: 02/23/17 22:10 Dose: 50 mcg Fluoxetine HCl (Prozac -) 10 mg PO HS JOSSELYN Hydromorphone HCl (Dilaudid Injection -) 1 mg IVPB Q3H6XD PRN PRN Reason: PAIN Cefazolin Sodium (Ancef -) 1 gm in 10 mls @ 100 mls/hr IVPUSH Q6H-IV JOSSELYN Dextrose/Sodium Chloride (D5-1/2ns -) 1,000 mls @ 75 mls/hr IV ASDIR JOSSELYN Lactated Ringer's (Lactated Ringers Solution) 1,000 mls @ 125 mls/hr IV ASDIR JOSSELYN Ondansetron HCl (Zofran Injection) 4 mg IVPUSH Q4H PRN PRN Reason: NAUSEA AND/OR VOMITING Oxycodone HCl (Roxicodone -) 5 mg PO Q4H PRN PRN Reason: PAIN LEVEL 1-5 Oxycodone HCl (Roxicodone -) 10 mg PO Q4H PRN PRN Reason: PAIN LEVEL 6-10 Promethazine HCl (Phenergan Injection -) 12.5 mg IVPB Q6H PRN PRN Reason: NAUSEA AND/OR VOMITING Vital Signs Period Temp Pulse Resp BP Sys/Self Pulse Ox Last 24 Hr 98.0 F-99.6 F 65-109 14-22 90-119/50-77 95-100 Problem List - Problems (1) Breast cancer Code(s): C50.919 - MALIGNANT NEOPLASM OF UNSP SITE OF UNSPECIFIED FEMALE BREAST (2) Chest wall deformity, acquired Code(s): M95.4 - ACQUIRED DEFORMITY OF CHEST AND RIB Assessment/Plan 51yow with Breast Ca s/p resection with breast implants c/b bilat chest wall deformity and pain now s/p breast flap reconstruction. Plan: -Post-op management as per surgical team -Q1h breast flap doppler pulse check -Monitor MARGIE output -Keep incisions clean dry and open to air -Pain management -ECG in am re long QTc -DVT proph -GI proph Rashida Pitts, ACNP CC time 35mins
[2017-02-23 23:37] LABS: PLATELET ESTIMATE ADEQUATE
[2017-02-23] MEDS: CEFAZOLIN 1 GM PUSH 1 GM/10 ML DISP.SYRIN IVPUSH SCH (23:40)
[2017-02-24] MEDS: CEFAZOLIN 1 GM PUSH 1 GM/10 ML DISP.SYRIN IVPUSH SCH ×4 (04:54→20:36)
--- NOTE | 2017-02-24 06:26 | PN ---
Progress Note (short form) - Note Progress Note: Patient is POD#1 s/p delayed bilateral breast reconstruction with bilateral implant removal and right BEV flap, left MS-TRAM free flap. She required Versed and Haldol last night in the recovery room due to delirium and trying to pull out lines and get out of bed. Overnight, she has been calm and pain controlled. She has been HD stable overnight. On exam today the left breast is soft and the IMF skin paddle is well-perfused. The right breast has increased in size since last night and the IMF skin paddle shows signs of venous congestion. The suture line around the skin paddle was released and there is both venous blood and bright red blood coming from the flap. Given the increase in flap size and signs of venous congestion, the patient requires emergent return to the OR for right breast exploration and flap revision. This was explained to the patient and consent was obtained.
[2017-02-24] MEDS ORDERED: PROPOFOL 20 ML ONE (07:20)
[2017-02-24] MEDS ORDERED: ROCURONIUM BROMIDE 50 MG/5 ML VIAL ONE (07:20)
[2017-02-24] MEDS ORDERED: LIDOCAINE HCL/PF 2% SDV 5ML VIAL ONE (07:20)
[2017-02-24] MEDS ORDERED: fentaNYL CITRATE 250 MCG/5 ML VIAL ONE (07:20)
[2017-02-24] MEDS ORDERED: DEXAMETHASONE SOD PHOSPHATE 4 MG/1 ML VIAL ONE (07:47)
[2017-02-24] MEDS ORDERED: DEXTROSE 5%-0.45% SALINE 1,000 ML IV SCH ×2 (08:00→09:23)
[2017-02-24] MEDS ORDERED: MIDAZOLAM HCL 2 MG/2 ML SINGLE DOSE VIAL ONE (08:05)
[2017-02-24] MEDS ORDERED: GLYCOPYRROLATE 0.2 MG/1 ML VIAL ONE (08:07)
[2017-02-24] MEDS ORDERED: NEOSTIGMINE METHYLSULFATE 0.5 MG/ML - 10 ML MDV ONE (08:07)
--- NOTE | 2017-02-24 08:21 | OP ---
Operative Note - Note: Operative Date: 02/24/17 Pre-Operative Diagnosis: Acquired chest wall deformity; congestion of right BEV flap - POD #1 Operation: Exploration and Revision of right breast BEV flap Implants: none Post-Operative Diagnosis: Same as Pre-op Surgeon: Pierce Bermudez Welder Gas Tungsten Arc: Rigoberto Lima (gregorio gnozalez PA-C) Anesthesia: General Estimated Blood Loss (mls): 20 Drains & Tubes with Location: 2 drains in right breast today. from yesterday's surgery - she has 2 drains in her abdomen, and 2 more in the left breast
[2017-02-24] MEDS ORDERED: ONDANSETRON 4 MG/2 ML VIAL IVPUSH PRN ×2 (08:44→09:23)
[2017-02-24] MEDS ORDERED: PROMETHAZINE HCL 25 MG/1 ML VIAL IVPB PRN (08:44)
--- NOTE | 2017-02-24 09:00 | OP ---
Operative Note - Note: Operative Date: 02/23/17 Pre-Operative Diagnosis: Acquired Absence of Both Breasts, Persistent Pain after Bilateral Breast Reconstruction with Prostheses. Operation: Bilateral Breast Implant Removal. Bilateral Breast Capsulectomies. Right Breast Reconstruction with BEV Flap (Left Lower Abdomen Donor). Left Breast Reconstruction with Muscle-Sparing Free TRAM Flap (Right Lower Abdomen Donor). Partial Resection of Right Third Rib. Partial Resection of Left Third Rib. Bilateral Exploration of Internal Mamary Vessels. Intra-Operative SPY Angiography x 2. Processing and Interpretation of Intra-Operative Angiography Images. Bilateral Ultrasound-Guided TAP Blocks. REinforcement of Anterior Lower Abdominal Wall wih Polypropylene Mesh Implants: None Post-Operative Diagnosis: Same as Pre-op Surgeon: Pierce Bermudez Rn Documentation: Rigoberto Lima Anesthesiologist/TICKET BROKER: Mazin Aranda Anesthesia: General Specimens Removed: Bilateral Breast Implants, Bilateral Breast Capsules Drains & Tubes with Location: Sander Javed Drains x 6: Left Breast Under Flap, Left Breast On Top Of Flap, Right Breast Under Flap, Right Breast On Top Of Flap , Abdomen Left, Abdomen Right Operative Report Dictated: Yes
[2017-02-24] MEDS ORDERED: ACETAMINOPHEN 1000 MG/100 ML VIAL (NON FORMULARY) IVPB PRN (09:23)
[2017-02-24] MEDS ORDERED: BUPIVACAINE LIPOSOME/PF (EXPAREL) 266 MG/20 ML VIAL NR ONE (09:23)
--- NOTE | 2017-02-24 09:27 | OP ---
Operative Note - Note: Operative Date: 02/24/17 Pre-Operative Diagnosis: Post-operative Congestion of Right Breast BEV Flap Operation: Exploration of Right Breast BEV Flap with Evacuation of Large Hematoma. Microsurgical Exploration and Revision or Right BEV Flap. Repositioning and Inset of Flap. Findings: Large Hematoma under BEV Flap, Kink of Pedicle near anastamosis site with multiple connective tissue bands creating a tourniquet effect on the larger of the two veins. Implants: None Surgeon: Pierce Bermudez Claim Processor: Rigoberto Lima Anesthesia: General Specimens Removed: Hematoma, Debrided Portion of Skin Paddle Estimated Blood Loss (mls): 100 Operative Report Dictated: Yes
[2017-02-24] MEDS ORDERED: ENOXAPARIN NA (PORCINE) 40 MG/0.4 ML DISP.SYRIN SQ SCH (10:00)
[2017-02-24] MEDS ORDERED: ASPIRIN 325 MG TABLET PO SCH (10:00)
--- NOTE | 2017-02-24 10:13 | OP ---
DATE OF OPERATION: 02/24/2017 PREOPERATIVE DIAGNOSIS: Postoperative congestion of right breast BEV (deep inferior epigastric artery vaccinator) flap. POSTOPERATIVE DIAGNOSIS: Postoperative congestion of right breast BEV (deep inferior epigastric artery vaccinator) flap. PROCEDURE PERFORMED: 1. Exploration of right BEV (deep inferior epigastric artery vaccinator) flap with evacuation of large hematoma. 2. Microsurgical exploration and revision of right BEV (deep inferior epigastric artery vaccinator) flap. 3. Reposition and inset of flap. SURGEONS: Pierce Maldonado MD, and Rigoberto Lima MD ANESTHESIA: General via endotracheal tube. BRIEF HISTORY: The patient is a 51-year-old female who underwent bilateral microsurgical breast reconstructions yesterday. Although the patient did well during the surgery, during her postoperative course, the monitoring paddle left for the right breast became darker in color and appeared venous engorged despite good Doppler arterial flow. Significant drainage through her Sander-Javed drains made it clear that the flap had poor venous outflow, and it was decided to reexplore this flap. DESCRIPTION OF PROCEDURE: The patient was placed on the operating table in the supine position, and the area of the chest was prepped and draped in the usual sterile fashion. The previous inframammary incision was reopened and the area of the anastomosis was examined. A large hematoma was evident beneath the flap, and this was suctioned and irrigated. Exploration of the area of the vessel anastomosis revealed a sharp bend in the vessels near the area of the anastomosis with a tight fibrous band restricting the larger of the 2 veins. Microscopic magnification and techniques were then used to release this fibrous band, and because of the length of the vessels, the geometry improved by rotating the flap and reinsetting the flap in that position. The superficial epigastric vein, which had been identified and ligated during the original procedure was open to quickly relieve much of the noted venous congestion. The appearance of the skin paddle immediately improved upon dissection around the vessels and changing of the vessel geometry, and closure was then begun. The monitoring paddle was trimmed and after closure had good color with good pulses evident by Doppler. The incision was closed using No. 3-0 Biosyn suture in interrupted buried fashion for the deep tissues and multiple 5-0 nylon sutures in simple interrupted fashion for the skin. The previously placed Sander-Javed drains were left in place and were functioning properly at the conclusion of the procedure. Sterile dressings were then applied, and the patient was awoken from anesthesia without any difficulty. She was taken from the operating room to the recovery room in satisfactory condition having tolerated the procedure well. PIERCE MALDONADO M.D. /[id number]
--- NOTE | 2017-02-24 10:46 | EKG ---
Test Reason : Blood Pressure : / mmHG Vent. Rate : 092 BPM Atrial Rate : 092 BPM P-R Int : 154 ms QRS Dur : 080 ms QT Int : 432 ms P-R-T Axes : 056 017 013 degrees QTc Int : 534 ms NORMAL SINUS RHYTHM NONSPECIFIC T WAVE ABNORMALITY ABNORMAL ECG WHEN COMPARED WITH ECG OF 11-JUN-2012 07:13, NONSPECIFIC T WAVE ABNORMALITY, WORSE IN INFERIOR LEADS NONSPECIFIC T WAVE ABNORMALITY NOW EVIDENT IN LATERAL LEADS QT HAS LENGTHENED Confirmed by RASHID ASCENCIO, JC ([id number]) on 02/24/2017 10:46:03 AM Referred By: Pierce Bermudez Confirmed By:JC MIKE MD
--- NOTE | 2017-02-24 11:39 | OP ---
DATE OF OPERATION: 02/23/2017 PREOPERATIVE DIAGNOSES: Acquired absence of both breasts with persistent pain after bilateral breast reconstructions using breast prostheses. POSTOPERATIVE DIAGNOSIS: Acquired absence of both breasts with persistent pain after bilateral breast reconstructions using breast prostheses. PROCEDURES PERFORMED: 1. Bilateral breast implant removal. 2. Bilateral breast capsulectomies. 3. Right breast reconstruction with deep inferior epigastric estate manager flap (left lower abdomen donor). 4. Left breast reconstruction muscle-sparing free TRAM flap (right lower abdomen donor). 5. Partial resection of right 3rd rib. 6. Partial resection of left 3rd rib. 7. Bilateral exploration of internal mammary vessels. 8. Intraoperative SPY angiography x2. 9. Processing and interpretation of intraoperative angiography images. 10. Bilateral ultrasound-guided transversus abdominis plane blocks. 11. Reinforcement of lower abdominal wall with polypropylene mesh. SURGEONS: Pierce Bermudez MD, and Rigoberto Lima MD ANESTHESIA: General via endotracheal tube. PROCEDURE: The patient was on the operating table in the supine position and then general anesthesia was administered by the anesthesiologist. The area of the chest and abdomen was prepped and draped in the usual sterile fashion. The abdomen was addressed first and the abdominal incisions were made as designed with the patient in the standing position preoperatively. The dissection on the left lower abdomen continued medially until perforating vessels were identified. Of note, prior to the beginning of the procedure, intraoperative angiography was performed using the SPY angiography unit to localize significant perforators of the lower abdominal wall and these were used as a guide for surgery. A large medial row estate manager was identified, as was a smaller lateral row estate manager, and it was decided to continue with the larger and more dominant medial row estate manager as noted on angiography. Simultaneous to this dissection, the right breast was approached using the inframammary incision from her previous surgery. Dissection continued down through subcutaneous tissues and hemostasis was achieved with the electrocautery. The implant capsule was identified and entered and previously placed AlloDerm was noted to be well incorporated. The implant removed was a 555-cc, contoured, textured implant. The posterior and anterior capsule was then excised to facilitate inset later in the procedure. The 3rd rib was identified and the cartilaginous portion of the 3rd rib was excised using a sharp rongeur. The internal mammary vessels were identified as a single artery and two veins and were of modest caliber. As the dissection continued in the abdomen to follow the course of the estate manager inferiorly, it was found to have a large intramuscular component and a small cuff of fascia was excised along with the pedicle during its dissection. Dissection continued down towards the inferior epigastric vessels where the vessels were individually ligated. The flap was then transferred to the right breast and microsurgical exploration was then performed. The inframammary vessels were individually ligated and the larger of the two veins was first anastomosed using a 3-mm venous aircraft motor mechanic. The artery was then approximated using two surgical clips and anastomosis was performed using 8-0 nylon suture in interrupted circumferential fashion using microsurgical magnification and techniques. The second vein was then approximated using a 2.5-mm venous aircraft motor mechanic. Once arterial flow was re-established, good venous backflow was appreciated prior to closure of the second venous aircraft motor mechanic. The raw surface of the de-epithelialized flap showed significant arterial bleeding throughout its course. The flap was then inset, securing the flap superiorly using 3-0 Biosyn suture in an orientation to prevent any tension on the anastomosis. Drains were then placed both beneath and superficial to the flap. The deep drain was a 19-Armenian round Sander-Javed drain and the superficial drain was a 15-Armenian round Sander-Javed drain. These were each placed through separate stab incisions in the anterior axillary line. They were secured with 3-0 nylon suture. The flap was then inset along the inframammary fold after designing a monitoring paddle since the entirety of the flap would be buried under the skin. This monitoring flap inferiorly represented the superior-most aspect of the flap since it was rotated 180 degrees for inset. The inframammary fold was then closed in a layered fashion. Deep tissues were closed with number 3-0 Biosyn suture in interrupted buried fashion and skin was closed with a 4-0 V-Loc 90 suture in continuous intradermal fashion. Dissection then continued on the right side of the lower abdomen, and the perforators suggested by the intraoperative angiography were felt to be of small caliber, and it was elected to dissect the vessel including a section of the medial portion of the rectus abdominis muscle, thereby converting the flap to a muscle-sparing, free TRAM flap. Dissection then continued down the vascular pedicle towards the takeoff of the deep inferior epigastric vessels and the vessels were individually ligated. A similar procedure and technique was used on the left breast for microsurgical exploration and anastomosis. Venous couplers were used, 2.0 and 2.5 mm, and the arterial anastomosis was similarly performed with 8-0 nylon suture in circumferential fashion. A monitoring paddle was similarly used for the left breast and this paddle similarly was located in roughly the center portion of the inframammary incision. Good perfusion was noted on both sides throughout the remaining course of the procedure. Abdominal closure was then performed, first by undermining the abdominal wall superiorly to the level of the costal margins. The bed was moved into the flexed position and because of the more extensive dissection of the right rectus abdominis muscle it was elected to use a polypropylene mesh to reinforce the anterior abdominal wall. This was sutured circumferentially and within the central portions of the mesh using 2-0 Vicryl suture in interrupted fashion. Abdominal drains were then placed, each through a separate stab incision inferolateral to the lateral corners of the incision. Drains used were 15-Armenian round Sander-Javed drains each directed centrally. A 2-0 silk suture was placed at the base of the umbilicus, which had been previously dissected, and the abdominal wall was reapproximated and closed in a layered fashion. Deep tissues were closed first with a layer of 2-0 Ethibond sutures to relieve tension on the abdominal wall closure and these were placed deep. Layered closure was then performed using number 3-0 Biosyn suture in interrupted buried fashion and a 4-0 V-Loc 90 suture for skin. Prior to closing the central portion of the wound, the umbilicus was identified beneath and a semicircular incision was used at the level of the iliac crests to deliver the umbilicus through the superior abdominal wall flap. The umbilicus was then inset in a layered fashion. Deep tissues were closed with number 4-0 Biosyn suture in interrupted buried fashion and skin was closed with a number 5-0 nylon suture in simple interrupted fashion. SPY angiography was performed a second time, prior to fully dissecting the right lower abdominal flap because of a question of the caliber of vessels, and this led to the decision to remove a portion of the rectus abdominal muscle on the right side. The angiography also showed good perfusion of the right flap after inset at the time. At the conclusion of the procedure, a good Doppler signal was noted on the skin paddle of both left and right breast flaps and sterile dressings were applied. The patient was then awoken from anesthesia, and taken from the operating room to the recovery room in satisfactory condition, having tolerated the procedure well. cc: MD PIERCE Krishna M.D. [id number]
--- NOTE | 2017-02-24 11:40 | PN ---
Physical Exam: SUBJECTIVE: Patient seen and examined. She is complaining of weakness and pain. OBJECTIVE: Vital Signs Period Temp Pulse Resp BP Sys/Self Pulse Ox Last 24 Hr 97.8 F-99.6 F 65-109 14-24 90-117/50-77 95-100 GENERAL: The patient is awake, alert, and fully oriented,lethargic. HEAD: Normal with no signs of trauma. EYES: extraocular movements intact, sclera anicteric, conjunctiva clear ENT: Ears normal, nares patent, oropharynx clear without exudates, moist mucous membranes, on NC. NECK: Trachea midline, full range of motion, supple. LUNGS: Breath sounds equal, clear to auscultation bilaterally, no wheezes, no crackles, no accessory muscle use. HEART: Regular rate and rhythm, S1, S2 without murmur, rub or gallop. ABDOMEN: Soft, nontender, nondistended, hypooactive bowel sounds, no guarding, no rebound, no hepatosplenomegaly, no masses. EXTREMITIES: 2+ pulses, warm, no edema. NEUROLOGICAL: Normal speech, no facial asymmetry, gait not observed. PSYCH: Normal mood, normal affect. SKIN: Warm, dry, normal turgor, s/p breast reconstruction, well healing wounds in breasts b/l, long horizontal scar across lower abdomen. 3 MARGIE drains present, draining sanguinous fluid. Laboratory Results - last 24 hr 02/23/17 02/23/17 02/23/17 21:50 21:50 21:50 WBC 5.8 RBC 3.01 L D Hgb 8.7 L D Hct 26.9 L D MCV 89.2 MCH 28.7 MCHC 32.2 RDW 14.2 Plt Count 172 D MPV 8.7 Total Counted 100 Neutrophils % No Result Required. Neutrophils % (Manual) 59.0 Band Neutrophils % 18.0 Lymphocytes % No Result Required. Lymphocytes % (Manual) 17.0 Monocytes % (Manual) 6 Differential Comment Rbc normal Platelet Estimate Adequate Sodium 141 Potassium 3.6 Chloride 110 H Carbon Dioxide 20 L Anion Gap 11 BUN 16 Creatinine 0.6 Creat Clearance w eGFR > 60 Random Glucose 154 H Calcium 7.0 L Total Bilirubin 0.4 D AST 12 L ALT 20 Alkaline Phosphatase 48 Total Protein 4.4 L D Albumin 2.3 L Blood Type A POSITIVE Antibody Screen Negative Active Medications Generic Name Dose Route Start Last Admin Trade Name Freq PRN Reason Stop Dose Admin Acetaminophen 1,000 mg 02/24/17 09:23 Ofirmev Injection - IVPB Q6H PRN PAIN Aspirin 325 mg 02/24/17 10:00 Asa - PO DAILY [facility] Chlorhexidine Gluconate 1 applic 02/24/17 22:00 Hibiclens For Decolonization - TP HS [facility] Diazepam 5 mg 02/24/17 09:23 Valium - PO Q8H PRN ANXIETY Diphenhydramine HCl 25 mg 02/24/17 09:23 Benadryl Injection - IVPB Q4H PRN FOR ITCHING Docusate Sodium 100 mg 02/24/17 10:00 Colace - PO BID [facility] Enoxaparin Sodium 40 mg 02/24/17 10:00 Lovenox - SQ DAILY [facility] Fentanyl 50 mcg 02/24/17 08:44 Sublimaze Injection - IVPUSH [id number] PRN PAIN-PACU ORDER X 4 DOSES ONLY Fentanyl 50 mcg 02/24/17 09:23 Sublimaze Injection - IVPUSH [id number] PRN PAIN-PACU ORDER X 4 DOSES ONLY Fluoxetine HCl 10 mg 02/24/17 22:00 Prozac - PO HS [facility] Hydromorphone HCl 1 mg 02/24/17 09:23 Dilaudid Injection - IVPB Q3H6XD PRN PAIN Lactated Ringer's 1,000 mls @ 125 mls/hr 02/24/17 08:45 Lactated Ringers Solution IV ASDIR [facility] Cefazolin Sodium 1 gm in 10 mls @ 100 mls/hr 02/24/17 15:00 Ancef - IVPUSH Q6H-IV [facility] Dextrose/Sodium Chloride 1,000 mls @ 75 mls/hr 02/24/17 09:23 D5-1/2ns - IV ASDIR [facility] Mupirocin 1 applic 02/24/17 10:00 Bactroban Ointment (For Decolonization) - NS 03/01/17 09:59 BID [facility] Ondansetron HCl 4 mg 02/24/17 08:44 Zofran Injection IVPUSH Q6H PRN NAUSEA AND/OR VOMITING Ondansetron HCl 4 mg 02/24/17 09:23 Zofran Injection IVPUSH Q4H PRN NAUSEA AND/OR VOMITING Oxycodone HCl 5 mg 02/24/17 18:35 Roxicodone - PO Q4H PRN PAIN LEVEL 1-5 Oxycodone HCl 10 mg 02/24/17 09:23 Roxicodone - PO Q4H PRN PAIN LEVEL 6-10 Promethazine HCl 12.5 mg 02/24/17 08:44 Phenergan Injection - IVPB Q6H PRN NAUSEA-FOR RESCUE AFTER 15 MIN ASSESSMENT/PLAN: 51 year old with Breast with Ca s/p resection with breast implants c/b bilat chest wall deformity and pain s/p breast flap reconstruction and revision or right BEV Flap yearlier today. s/p surgical reconstruction and BEV flap revision Post-op management as per surgical team Q1h breast flap doppler pulse check Monitor MARGIE output Keep incisions clean dry and open to air Pain management: cont Roxicodone, Fentanyl cont Ancef for now DVT PPX: hold Lovenox and ASA per surgery recommendations F/E/N; LR/monitor/NPO DISPO: ICU Problem List - Problems (1) Breast cancer Code(s): C50.919 - MALIGNANT NEOPLASM OF UNSP SITE OF UNSPECIFIED FEMALE BREAST (2) Chest wall deformity, acquired Code(s): M95.4 - ACQUIRED DEFORMITY OF CHEST AND RIB Visit type - Emergency Visit Emergency Visit: Yes ED Registration Date: 02/23/17 Care time: The patient presented to the Emergency Department on the above date and was hospitalized for further evaluation of their emergent condition. - New Patient This patient is new to me today: Yes Date on this admission: 02/24/17 - Critical Care Critical Care patient: Yes Total Critical Care Time (in minutes): 40 Critical Care Statement: The care of this patient involved high complexity decision making to prevent further life threatening deterioration of the patient 's condition and/or to evaluate & treat vital organ system(s) failure or risk of failure.
[2017-02-24] MEDS: ENOXAPARIN NA (PORCINE) 40 MG/0.4 ML DISP.SYRIN SQ SCH (11:55)
[2017-02-24] MEDS: ASPIRIN 325 MG TABLET PO SCH (11:55)
[2017-02-24] MEDS: MUPIROCIN 2% TOPICAL OINTMENT FOR DECOLONIZATION NS SCH ×2 (11:56→21:12)
[2017-02-24] MEDS: LACTATED RINGERS SOLUTION 1,000 ML IV SCH ×2 (12:02→21:00)
[2017-02-24 12:41] LABS: HEMATOCRIT 25.6 % (32.4-45.2); HEMOGLOBIN 8.3 GM/dL (10.7-15.3); MCH 28.7 pg (25.7-33.7); MCHC 32.4 g/dl (32.0-36.0); MEAN CELL VOLUME 88.6 fl (80-96); MEAN PLT VOLUME 8.4 fl (7.5-11.1); PLATELET COUNT 194 K/MM3 (134-434); RBC 2.89 M/mm3 (3.60-5.2); RDW 14.3 % (11.6-15.6); WHITE BLOOD COUNT 6.5 K/mm3 (4.0-10.0)
[2017-02-24] MEDS: DOCUSATE SODIUM 100 MG CAPSULE (FP) PO SCH ×2 (12:46→21:12)
--- NOTE | 2017-02-24 13:01 | PN ---
Teaching Attending Note Name of Resident: Cyndi Cloud ATTENDING PHYSICIAN STATEMENT I saw and evaluated the patient. I reviewed the resident's note and discussed the case with the resident. I agree with the resident's findings and plan as documented. SUBJECTIVE: Pt seen and examined in the ICU. Taken back to OR for exploration/right hematoma evaculation. Pain adequately controlled. Denies shortness of breath. No fevers or chills. OBJECTIVE: Last Vital Signs Temp Pulse Resp BP Pulse Ox 97.8 F 100 H 18 100/62 96 02/24/17 10:00 02/24/17 12:00 02/24/17 12:00 02/24/17 12:00 02/24/17 09:00 Intake & Output 02/21/17 02/22/17 02/23/17 02/24/17 23:59 23:59 23:59 23:59 Intake Total 6300 1362.5 Output Total 2085 1202 Balance 4215 160.5 Weight 67.585 kg 72.938 kg Gen: somnolent but arousable Heart: tachycardic, regular Lung: decreased breath sounds at the bases Chest: drains with serosanguinous fluid Abd: soft, dressings dry Ext: no edema CBC, BMP 02/24/17 12:15 02/23/17 21:50 Active Medications Acetaminophen (Ofirmev Injection -) 1,000 mg IVPB Q6H PRN PRN Reason: PAIN Aspirin (Asa -) 325 mg PO DAILY [facility] Last Admin: 02/24/17 11:55 Dose: Not Given Chlorhexidine Gluconate (Hibiclens For Decolonization -) 1 applic TP HS [facility] Diazepam (Valium -) 5 mg PO Q8H PRN PRN Reason: ANXIETY Diphenhydramine HCl (Benadryl Injection -) 25 mg IVPB Q4H PRN PRN Reason: FOR ITCHING Docusate Sodium (Colace -) 100 mg PO BID [facility] Last Admin: 02/24/17 12:46 Dose: Not Given Enoxaparin Sodium (Lovenox -) 40 mg SQ DAILY [facility] Last Admin: 02/24/17 11:55 Dose: Not Given Fentanyl (Sublimaze Injection -) 50 mcg IVPUSH [id number] PRN PRN Reason: PAIN-PACU ORDER X 4 DOSES ONLY Fentanyl (Sublimaze Injection -) 50 mcg IVPUSH [id number] PRN PRN Reason: PAIN-PACU ORDER X 4 DOSES ONLY Fluoxetine HCl (Prozac -) 10 mg PO HS [facility] Hydromorphone HCl (Dilaudid Injection -) 1 mg IVPB Q3H6XD PRN PRN Reason: PAIN Lactated Ringer's (Lactated Ringers Solution) 1,000 mls @ 125 mls/hr IV ASDIR [facility] Last Admin: 02/24/17 12:02 Dose: 125 mls/hr Cefazolin Sodium (Ancef -) 1 gm in 10 mls @ 100 mls/hr IVPUSH Q6H-IV [facility] Dextrose/Sodium Chloride (D5-1/2ns -) 1,000 mls @ 75 mls/hr IV ASDIR [facility] Mupirocin (Bactroban Ointment (For Decolonization) -) 1 applic NS BID [facility] Stop: 03/01/17 09:59 Last Admin: 02/24/17 11:56 Dose: 1 applic Ondansetron HCl (Zofran Injection) 4 mg IVPUSH Q6H PRN PRN Reason: NAUSEA AND/OR VOMITING Ondansetron HCl (Zofran Injection) 4 mg IVPUSH Q4H PRN PRN Reason: NAUSEA AND/OR VOMITING Oxycodone HCl (Roxicodone -) 5 mg PO Q4H PRN PRN Reason: PAIN LEVEL 1-5 Oxycodone HCl (Roxicodone -) 10 mg PO Q4H PRN PRN Reason: PAIN LEVEL 6-10 Promethazine HCl (Phenergan Injection -) 12.5 mg IVPB Q6H PRN PRN Reason: NAUSEA-FOR RESCUE AFTER 15 MIN ASSESSMENT AND PLAN: Breast Ca s/p mastectomies/implants now s/p bilateral BEV reconstructions s/p Hematoma Evacuation Acute Blood Loss Anemia - pain control - incentive spirometry - flap monitoring - monitor drain output - monitor H/H - PO as tolerated - DVT prophylaxis - continue ICU care for flap monitoring
[2017-02-24] MEDS ORDERED: PT OWN MED DRAWER 7, Y5N ONE ×3 (15:01→19:46)
[2017-02-24] MEDS ORDERED: oxyCODONE HCL 5 MG TABLET PO PRN (18:35)
[2017-02-24] MEDS: FLUoxetine HCL 10 MG CAPSULE (FP) PO SCH (21:12)
[2017-02-24] MEDS: CHLORHEXIDINE GLUCONATE 4% CLEANSER FOR DECOLONIZATION TP SCH (21:13)
[2017-02-25] MEDS: CEFAZOLIN 1 GM PUSH 1 GM/10 ML DISP.SYRIN IVPUSH SCH ×4 (02:18→21:52)
[2017-02-25] MEDS: HYDROmorphone HCL CARPU-JECT 2 MG/1 ML DISP.SYRIN IVPB PRN ×2 (04:40→20:18)
[2017-02-25 06:38] LABS: HEMATOCRIT 20.1 % (32.4-45.2); MCH 28.8 pg (25.7-33.7); MCHC 32.5 g/dl (32.0-36.0); MEAN CELL VOLUME 88.6 fl (80-96); MEAN PLT VOLUME 8.7 fl (7.5-11.1); PLATELET COUNT 173 K/MM3 (134-434); RBC 2.27 M/mm3 (3.60-5.2)
[2017-02-25 07:02] LABS: ALBUMIN 1.9 g/dl (3.4-5.0); ANION GAP 6 (8-16); BLOOD UREA NITROGEN 14 mg/dL (7-18); CHLORIDE 105 mmol/L (98-107); CO2 28 mmol/L (21-32); CREATININE 0.3 mg/dL (0.55-1.02); GLUCOSE,RANDOM 115 mg/dL (74-106); MAGNESIUM 1.8 mg/dL (1.8-2.4); PHOSPHOROUS 1.4 mg/dL (2.5-4.9); POTASSIUM 3.6 mmol/L (3.5-5.1); SGOT/AST 16 U/L (15-37); SGPT/ALT 16 U/L (12-78); SODIUM 139 mmol/L (136-145)
[2017-02-25 07:04] LABS: ALK PHOS 41 U/L (45-117); BILIRUBIN,TOTAL 0.5 mg/dL (0.2-1.0); TOT PROT 4.3 g/dl (6.4-8.2)
[2017-02-25] MEDS ORDERED: PAPAVERINE HCL 30 MG/1 ML 10 ML VIAL NR ONE (07:21)
[2017-02-25] MEDS ORDERED: HEPARIN NA (PORCINE) 5,000 UNITS/ML 1ML VIAL ONE (07:21)
[2017-02-25] MEDS ORDERED: ROCURONIUM BROMIDE 50 MG/5 ML VIAL ONE ×3 (07:26→12:11)
[2017-02-25 08:07] LABS: HEMOGLOBIN 6.5 GM/dL (10.7-15.3)
--- NOTE | 2017-02-25 08:11 | PN ---
Progress Note (short form) - Note Progress Note: Called by nurse about 5am because of color change in Right Breast flap monitoring segment. Arrived at 6:30am- Skin paddle dark and doppler signals present, but diminished in amplitude. Lateral signal not found. Released medial sutures- and those superior to monitoring skin paddle. Hematoma evacuated and some serous fluid present. Decided to re-explore in OR again. Consent obtained. H/H: 10/02- will transfuse two units PRBC's in OR.
[2017-02-25] MEDS ORDERED: fentaNYL CITRATE 250 MCG/5 ML VIAL ONE (08:27)
[2017-02-25] MEDS ORDERED: LIDOCAINE HCL/PF 2% SDV 5ML VIAL ONE (08:27)
[2017-02-25] MEDS ORDERED: PROPOFOL 20 ML ONE ×2 (08:28)
[2017-02-25] MEDS ORDERED: ceFAZolin SODIUM 1 GM VIAL IVPB ONE (08:56)
[2017-02-25] MEDS: LACTATED RINGERS SOLUTION 1,000 ML IV SCH ×2 (09:00→16:51)
--- NOTE | 2017-02-25 09:24 | PN ---
Physical Exam: SUBJECTIVE: Patient seen and examined The patient is a 51 year old female with a history of breast CA s/p resection and a breast flap reconstruction and BEV flap revision admitted to the ICU for flap checks. Patient was noted to have decreased capillary refill to the right breast flap this morning and was taken to the OR. She was also noted to have an anemia with a hgb of 6.5 and will be transfused in the OR. OBJECTIVE: Vital Signs Period Temp Pulse Resp BP Sys/Self Pulse Ox Last 24 Hr 97.8 F-100 F 87-109 18-20 96-113/57-71 96-98 GENERAL: The patient is awake, alert, and fully oriented, in no acute distress. HEAD: Normal with no signs of trauma. EYES: sclera anicteric, conjunctiva clear. No ptosis. ENT: nares patent, oropharynx clear without exudates, moist mucous membranes. NECK: Trachea midline, full range of motion, supple. LUNGS/CHEST: s/p breast reconstruction, long horizontal scar across lower abdomen. 3 MARGIE drains present, draining sanguinous fluid. Decreased capillary refill to the right breast. Right breast appears dusky in appearance. Breath sounds equal, clear to auscultation bilaterally, no wheezes, no crackles, no accessory muscle use. HEART: Regular rate and rhythm, S1, S2 without murmur, rub or gallop. ABDOMEN: Soft, nontender, nondistended, normoactive bowel sounds, no guarding, no rebound, no hepatosplenomegaly, no masses. EXTREMITIES: 2+ pulses, warm, well-perfused, no edema. NEUROLOGICAL: gait not observed. PSYCH: Normal mood, normal affect. SKIN: Warm, dry, normal turgor, no rashes or lesions noted Laboratory Results - last 24 hr 02/23/17 02/24/17 02/25/17 21:50 12:15 05:05 WBC 6.5 6.0 RBC 2.89 L 2.27 L D Hgb 8.3 L 6.5 L* D Hct 25.6 L 20.1 L D MCV 88.6 88.6 MCH 28.7 28.8 MCHC 32.4 32.5 RDW 14.3 14.0 Plt Count 194 173 MPV 8.4 8.7 Sodium Potassium Chloride Carbon Dioxide Anion Gap BUN Creatinine Creat Clearance w eGFR Random Glucose Calcium Phosphorus Magnesium Total Bilirubin AST ALT Alkaline Phosphatase Total Protein Albumin Blood Type A POSITIVE Antibody Screen Negative Crossmatch IS Only See Detail 02/25/17 05:05 WBC RBC Hgb Hct MCV MCH MCHC RDW Plt Count MPV Sodium 139 Potassium 3.6 Chloride 105 Carbon Dioxide 28 Anion Gap 6 L BUN 14 Creatinine 0.3 L Creat Clearance w eGFR > 60 Random Glucose 115 H Calcium 7.0 L Phosphorus 1.4 L Magnesium 1.8 Total Bilirubin 0.5 D AST 16 ALT 16 Alkaline Phosphatase 41 L Total Protein 4.3 L Albumin 1.9 L Blood Type Antibody Screen Crossmatch IS Only Active Medications Generic Name Dose Route Start Last Admin Trade Name Freq PRN Reason Stop Dose Admin Acetaminophen 1,000 mg 02/24/17 09:23 Ofirmev Injection - IVPB Q6H PRN PAIN Aspirin 325 mg 02/24/17 10:00 02/24/17 11:55 Asa - PO Not Given DAILY [facility] Chlorhexidine Gluconate 1 applic 02/24/17 22:00 02/24/17 21:13 Hibiclens For Decolonization - TP 1 applic HS [facility] Administration Diazepam 5 mg 02/24/17 09:23 Valium - PO Q8H PRN ANXIETY Diphenhydramine HCl 25 mg 02/24/17 09:23 Benadryl Injection - IVPB Q4H PRN FOR ITCHING Docusate Sodium 100 mg 02/24/17 10:00 02/24/17 21:12 Colace - PO 100 mg BID [facility] Administration Enoxaparin Sodium 40 mg 02/24/17 10:00 02/24/17 11:55 Lovenox - SQ Not Given DAILY [facility] Fentanyl 50 mcg 02/24/17 08:44 Sublimaze Injection - IVPUSH [id number] PRN PAIN-PACU ORDER X 4 DOSES ONLY Fentanyl 50 mcg 02/24/17 09:23 Sublimaze Injection - IVPUSH [id number] PRN PAIN-PACU ORDER X 4 DOSES ONLY Fluoxetine HCl 10 mg 02/24/17 22:00 02/24/17 21:12 Prozac - PO 10 mg HS [facility] Administration Hydromorphone HCl 1 mg 02/24/17 09:23 02/25/17 04:40 Dilaudid Injection - IVPB 1 mg Q3H6XD PRN Administration PAIN Lactated Ringer's 1,000 mls @ 125 mls/hr 02/24/17 08:45 02/24/17 21:00 Lactated Ringers Solution IV 125 mls/hr ASDIR [facility] Administration Cefazolin Sodium 1 gm in 10 mls @ 100 mls/hr 02/24/17 15:00 02/25/17 02:18 Ancef - IVPUSH 100 mls/hr Q6H-IV [facility] Administration Mupirocin 1 applic 02/24/17 10:00 02/24/17 21:12 Bactroban Ointment (For Decolonization) - NS 03/01/17 09:59 1 applic BID [facility] Administration Ondansetron HCl 4 mg 02/24/17 08:44 Zofran Injection IVPUSH Q6H PRN NAUSEA AND/OR VOMITING Ondansetron HCl 4 mg 02/24/17 09:23 Zofran Injection IVPUSH Q4H PRN NAUSEA AND/OR VOMITING Oxycodone HCl 5 mg 02/24/17 18:35 Roxicodone - PO Q4H PRN PAIN LEVEL 1-5 Oxycodone HCl 10 mg 02/24/17 09:23 Roxicodone - PO Q4H PRN PAIN LEVEL 6-10 Promethazine HCl 12.5 mg 02/24/17 08:44 Phenergan Injection - IVPB Q6H PRN NAUSEA-FOR RESCUE AFTER 15 MIN ASSESSMENT/PLAN: The patient is a 51 year old female with a history of breast CA s/p resection and a breast flap reconstruction and BEV flap revision admitted to the ICU for flap checks. S/P surgical reconstruction and BEV flap revision Patient was taken back to the OR this morning for decreased perfusion to the right breast flap. -Post-op management as per surgical team -Q1h breast flap doppler pulse check -Monitor MARGIE output -Keep incisions clean dry and open to air -Pain management: Continue Roxicodone, Fentanyl -Continue Ancef for now NEURO No Issues currently. -Awake and Oriented x3 CV No Issues currently. -Will continue to monitor RESP No Issues currently. -Will continue to monitor GI No Issues currently. Heme #Anemia Patient's hgb was noted to be 6.5 this morning. -Will receive 2 units of PRBC in the OR per anesthesia. -Will recheck the patient's cbc to evaluate progress after transfusion. -Will continue to monitor. Renal -Stable BUN/creatinine -Will continue to monitor. ID Will continue antibiotic treatment with ancef for now. MSK No issues currently FEN/GI -Replete electrolytes PRN, will monitor PPX -Continue Lovenox prophalaxysis. DISPO: Continue ICU level of care. Visit type - Emergency Visit Emergency Visit: No - New Patient This patient is new to me today: No - Critical Care Critical Care patient: Yes Total Critical Care Time (in minutes): 35 Critical Care Statement: The care of this patient involved high complexity decision making to prevent further life threatening deterioration of the patient 's condition and/or to evaluate & treat vital organ system(s) failure or risk of failure.
[2017-02-25] MEDS: MUPIROCIN 2% TOPICAL OINTMENT FOR DECOLONIZATION NS SCH ×2 (10:20→21:52)
[2017-02-25] MEDS: ASPIRIN 325 MG TABLET PO SCH (10:20)
[2017-02-25] MEDS: DOCUSATE SODIUM 100 MG CAPSULE (FP) PO SCH ×2 (10:21→21:52)
[2017-02-25] MEDS ORDERED: ALTEPLASE 2 MG VIAL CVP ONE (12:30)
[2017-02-25] MEDS ORDERED: DESFLURANE GAS 240 ML BOTTLE IH ONE (13:46)
[2017-02-25] MEDS ORDERED: LIDOCAINE 1%/EPI 1:100000 (20 ML MULTI DOSE VIAL) IJ ONE (15:00)
--- NOTE | 2017-02-25 15:03 | PN ---
Teaching Attending Note Name of Resident: Santos Ruiz ATTENDING PHYSICIAN STATEMENT I saw and evaluated the patient. I reviewed the resident's note and discussed the case with the resident. I agree with the resident's findings and plan as documented. SUBJECTIVE: Taken back to OR for re-exploration after flap dusky. H/H lower this AM. OBJECTIVE: Last Vital Signs Temp Pulse Resp BP Pulse Ox 99.6 F 93 H 20 108/71 96 02/25/17 06:00 02/25/17 10:00 02/25/17 10:00 02/25/17 10:00 02/25/17 07:46 Intake & Output 02/22/17 02/23/17 02/24/17 02/25/17 23:59 23:59 23:59 23:59 Intake Total 6300 2102.5 1840 Output Total 2085 2934 484 Balance 4215 -831.5 1356 Weight 67.585 kg 72.938 kg 74.933 kg Gen: NAD Heart: RRR Lung: decreased breath sounds at the bases Abd: soft, nontender Ext: no edema CBC, BMP 02/25/17 05:05 02/25/17 05:05 Active Medications Acetaminophen (Ofirmev Injection -) 1,000 mg IVPB Q6H PRN PRN Reason: PAIN Aspirin (Asa -) 325 mg PO DAILY [facility] Last Admin: 02/25/17 10:20 Dose: Not Given Chlorhexidine Gluconate (Hibiclens For Decolonization -) 1 applic TP HS [facility] Last Admin: 02/24/17 21:13 Dose: 1 applic Diazepam (Valium -) 5 mg PO Q8H PRN PRN Reason: ANXIETY Diphenhydramine HCl (Benadryl Injection -) 25 mg IVPB Q4H PRN PRN Reason: FOR ITCHING Docusate Sodium (Colace -) 100 mg PO BID [facility] Last Admin: 02/25/17 10:21 Dose: Not Given Enoxaparin Sodium (Lovenox -) 40 mg SQ DAILY [facility] Last Admin: 02/24/17 11:55 Dose: Not Given Fentanyl (Sublimaze Injection -) 50 mcg IVPUSH [id number] PRN PRN Reason: PAIN-PACU ORDER X 4 DOSES ONLY Fentanyl (Sublimaze Injection -) 50 mcg IVPUSH [id number] PRN PRN Reason: PAIN-PACU ORDER X 4 DOSES ONLY Fluoxetine HCl (Prozac -) 10 mg PO HS [facility] Last Admin: 02/24/17 21:12 Dose: 10 mg Hydromorphone HCl (Dilaudid Injection -) 1 mg IVPB Q3H6XD PRN PRN Reason: PAIN Last Admin: 02/25/17 04:40 Dose: 1 mg Lactated Ringer's (Lactated Ringers Solution) 1,000 mls @ 125 mls/hr IV ASDIR [facility] Last Admin: 02/25/17 09:00 Dose: Not Given Cefazolin Sodium (Ancef -) 1 gm in 10 mls @ 100 mls/hr IVPUSH Q6H-IV [facility] Last Admin: 02/25/17 09:00 Dose: Not Given HEPARIN SOD,PORK IN 0.45% NACL (Heparin-1/2ns 25,000 Units/500) 25,000 unit in 500 mls @ 10 mls/hr IVPB TITR [facility]; 500 UNITS/HR PRN Reason: Protocol Mupirocin (Bactroban Ointment (For Decolonization) -) 1 applic NS BID [facility] Stop: 03/01/17 09:59 Last Admin: 02/25/17 10:20 Dose: Not Given Ondansetron HCl (Zofran Injection) 4 mg IVPUSH Q6H PRN PRN Reason: NAUSEA AND/OR VOMITING Ondansetron HCl (Zofran Injection) 4 mg IVPUSH Q4H PRN PRN Reason: NAUSEA AND/OR VOMITING Oxycodone HCl (Roxicodone -) 5 mg PO Q4H PRN PRN Reason: PAIN LEVEL 1-5 Oxycodone HCl (Roxicodone -) 10 mg PO Q4H PRN PRN Reason: PAIN LEVEL 6-10 Promethazine HCl (Phenergan Injection -) 12.5 mg IVPB Q6H PRN PRN Reason: NAUSEA-FOR RESCUE AFTER 15 MIN ASSESSMENT AND PLAN: Breast Ca s/p mastectomies/implants now s/p bilateral BEV reconstructions s/p Hematoma Evacuation Acute Blood Loss Anemia - pain control - incentive spirometry - flap monitoring - monitor drain output - monitor H/H - transfuse as needed - PO as tolerated - DVT prophylaxis - continue ICU care for flap monitoring
[2017-02-25] MEDS ORDERED: LIDOCAINE 1%/EPI 1:100000 (20 ML MULTI DOSE VIAL) ONE (15:11)
[2017-02-25] MEDS ORDERED: NEOSTIGMINE METHYLSULFATE 0.5 MG/ML - 10 ML MDV ONE (15:19)
[2017-02-25] MEDS ORDERED: GLYCOPYRROLATE 0.2 MG/1 ML VIAL ONE (15:19)
[2017-02-25] MEDS ORDERED: LABETALOL HCL 5 MG/1 ML (100MG/20 ML VIAL) ONE (15:43)
[2017-02-25] MEDS ORDERED: PROMETHAZINE HCL 25 MG/1 ML VIAL IVPB PRN (15:55)
[2017-02-25] MEDS ORDERED: ONDANSETRON 4 MG/2 ML VIAL IVPUSH PRN (15:55)
[2017-02-25] MEDS ORDERED: NAPH,MB-DB/K PH,MBDB POWDER PACKET PO ONE (16:00)
[2017-02-25] MEDS: HEPARIN SOD,PORK IN 0.45% NACL 25,000 UNIT/500 ML INFUS.BAG IVPB SCH (16:00)
[2017-02-25] MEDS ORDERED: PT OWN MED DRAWER 7, Y5N ONE ×2 (17:13→21:24)
[2017-02-25 20:11] LABS: HEMATOCRIT 25.2 % (32.4-45.2); HEMOGLOBIN 8.5 GM/dL (10.7-15.3); MCH 29.5 pg (25.7-33.7); MCHC 33.7 g/dl (32.0-36.0); MEAN CELL VOLUME 87.8 fl (80-96); MEAN PLT VOLUME 8.8 fl (7.5-11.1); PLATELET COUNT 174 K/MM3 (134-434); RBC 2.87 M/mm3 (3.60-5.2); RDW 14.3 % (11.6-15.6); WHITE BLOOD COUNT 7.2 K/mm3 (4.0-10.0)
[2017-02-25] MEDS ORDERED: HEPARIN NA (PORCINE) 5,000 UNITS/ML 1ML VIAL IVPUSH PRN ×2 (21:27)
[2017-02-25] MEDS: FLUoxetine HCL 10 MG CAPSULE (FP) PO SCH (21:52)
[2017-02-25] MEDS: CHLORHEXIDINE GLUCONATE 4% CLEANSER FOR DECOLONIZATION TP SCH (21:52)
[2017-02-26] MEDS: HYDROmorphone HCL CARPU-JECT 2 MG/1 ML DISP.SYRIN IVPB PRN ×4 (01:29→16:25)
[2017-02-26] MEDS: CEFAZOLIN 1 GM PUSH 1 GM/10 ML DISP.SYRIN IVPUSH SCH ×4 (02:35→21:53)
[2017-02-26] MEDS: diazePAM 5 MG TABLET PO PRN (04:12)
[2017-02-26] MEDS ORDERED: PT OWN MED DRAWER 7, Y5N ONE ×2 (08:55→21:32)
[2017-02-26] MEDS: ENOXAPARIN NA (PORCINE) 40 MG/0.4 ML DISP.SYRIN SQ SCH (09:16)
[2017-02-26] MEDS: ASPIRIN 325 MG TABLET PO SCH (09:19)
[2017-02-26] MEDS: DOCUSATE SODIUM 100 MG CAPSULE (FP) PO SCH ×2 (09:19→21:53)
[2017-02-26] MEDS: MUPIROCIN 2% TOPICAL OINTMENT FOR DECOLONIZATION NS SCH ×2 (09:19→21:53)
--- NOTE | 2017-02-26 09:35 | PN ---
Progress Note (short form) - Note Progress Note: Patient is POD #3 s/p bilateral breast reconstruction with BEV flap on 2017. The BEV flap reconstruction was a delayed procedure and was performed by both Dr. Bermudez and Dr. Lima. Patient had postop complications and had required surgery on 02/24/2017 for exploration and revision of right breast BEV and another on 02/25/[address] Bermudez and Dr. Lima made revision to the venous connection in the right breast. Her left breast flap has been stable and consistently improving. Over night, her H&H was low, so she had required 2 units of PRBC. Since, she has been doing well. Patient was seen by bedside this morning. Patient was seen by me and her nurse. She has been tolerating pain well. Starting to eat clear liquid diet - tolerating well. Drinking water well. Denies headache, chills, nausea/vomiting/diarrhea, or any urinary sxs. Patient has been bedrest and has a starr. On PE, she is A&O x 3. Interactive and cooperative. Right breast with appropriate swelling. Incision is covered by xeroform on the breast. The incision site is c/d/i with no surrounding erythema. There is no flap/skin paddle that is visible on this breast - has a copper implantable doppler, that shows great arterial and venous sound. Left breast has appropriate swelling and flap is warm to touch, and doppler has great sound, arterial and venous. 4 MARGIE drains holding suction well in breast (2 each) Abdomen with appropriate swelling. Incision is covered with perineo. no surrounding erythema. 2 MARGIE drains on suction. A/P: POD #3 s/p bilateral breast reconstruction with BEV flap on 02/23/2017. : exploration and revision of right breast BEV and another on 02/25/2017 Diet: Advance diet. No caffeine, no chocolate. OOB to chair as toelrated this afternoon. D/c starr Pain: continue with regimen po. tolerating pain well. Doppler: q2hr checks Case management - possible VNS set up - appreciate consult. Will continue to monitor her closely Discussed hoping for d/c in 2 days.
[2017-02-26 10:45] LABS: BASO % 0.4 % (0-2.0); EOS % 0.1 % (0-4.5); HEMATOCRIT 29.6 % (32.4-45.2); HEMOGLOBIN 10.1 GM/dL (10.7-15.3); LYMPH % 31.2 % (8-40); MCH 29.8 pg (25.7-33.7); MCHC 34.3 g/dl (32.0-36.0); MEAN CELL VOLUME 86.8 fl (80-96); MEAN PLT VOLUME 8.2 fl (7.5-11.1); MONO % 8.1 % (3.8-10.2); NEUT % 60.2 % (42.8-82.8); PLATELET COUNT 140 K/MM3 (134-434); RBC 3.41 M/mm3 (3.60-5.2); RDW 14.1 % (11.6-15.6); WHITE BLOOD COUNT 6.9 K/mm3 (4.0-10.0)
--- NOTE | 2017-02-26 10:54 | PN ---
Progress Note (short form) - Note Progress Note: Anesthesia post op note, POD#1, S/P Revision of right breast BEV. Pat seen and examined. AAOX3. VSS. No apparent post anesthesia complications.Signed off.
[2017-02-26 10:59] LABS: INR 1.11 (0.82-1.09); PROTHROMBIN TIME (PATIENT) 12.5 SEC (9.98-11.88)
[2017-02-26 11:01] LABS: ACTIVATED PTT 29.9 SECONDS (26.9-34.4)
[2017-02-26 11:49] LABS: ALBUMIN 1.7 g/dl (3.4-5.0); ALK PHOS 45 U/L (45-117); ANION GAP 5 (8-16); BILIRUBIN,TOTAL 0.6 mg/dL (0.2-1.0); BLOOD UREA NITROGEN 13 mg/dL (7-18); CALCIUM 7.3 mg/dL (8.5-10.1); CHLORIDE 107 mmol/L (98-107); CO2 28 mmol/L (21-32); CREATININE 0.4 mg/dL (0.55-1.02); GLUCOSE,RANDOM 152 mg/dL (74-106); PHOSPHOROUS 1.3 mg/dL (2.5-4.9); POTASSIUM 3.1 mmol/L (3.5-5.1); SGOT/AST 29 U/L (15-37); SGPT/ALT 19 U/L (12-78); SODIUM 140 mmol/L (136-145); TOT PROT 4.3 g/dl (6.4-8.2)
--- NOTE | 2017-02-26 12:34 | PN ---
Physical Exam: SUBJECTIVE: Patient seen and examined The patient is a 51 year old female with a history of breast CA s/p resection and a breast flap reconstruction and BEV flap revision admitted to the ICU for flap checks. The patient reports improvement in her symptoms. Flap checks have been occurring with doppler pulses noted. Anemia improved after 2 units of PRBC. Otherwise no acute events overnight. OBJECTIVE: Vital Signs Period Temp Pulse Resp BP Sys/Self Pulse Ox Last 24 Hr 99 F-100.9 F 75-108 16-22 108-130/61-85 95-98 GENERAL: The patient is awake, alert, and fully oriented, in no acute distress. HEAD: Normal with no signs of trauma. EYES: sclera anicteric, conjunctiva clear. No ptosis. ENT: nares patent, oropharynx clear without exudates, moist mucous membranes. NECK: Trachea midline, full range of motion, supple. LUNGS/CHEST: s/p breast reconstruction, long horizontal scar across lower abdomen. 3 MARGIE drains present, draining sanguinous fluid. Well healing wounds with normal capillary refill. Breath sounds equal, clear to auscultation bilaterally, no wheezes, no crackles, no accessory muscle use. HEART: Regular rate and rhythm, S1, S2 without murmur, rub or gallop. ABDOMEN: Soft, nontender, nondistended, normoactive bowel sounds, no guarding, no rebound, no hepatosplenomegaly, no masses. EXTREMITIES: 2+ pulses, warm, well-perfused, no edema. NEUROLOGICAL: Normal speech, gait not observed. PSYCH: Normal mood, normal affect. SKIN: Warm, dry, normal turgor, no rashes or lesions noted Laboratory Results - last 24 hr 02/23/17 02/25/17 02/25/17 21:50 19:30 19:30 WBC 7.2 RBC 2.87 L D Hgb 8.5 L D Hct 25.2 L D MCV 87.8 MCH 29.5 MCHC 33.7 RDW 14.3 Plt Count 174 MPV 8.8 Neutrophils % Lymphocytes % Monocytes % Eosinophils % Basophils % PT with INR INR PTT (Actin FS) 23.3 L Sodium Potassium Chloride Carbon Dioxide Anion Gap BUN Creatinine Creat Clearance w eGFR Random Glucose Calcium Phosphorus Magnesium Total Bilirubin AST ALT Alkaline Phosphatase Total Protein Albumin Blood Type A POSITIVE Antibody Screen Negative Crossmatch See Detail Crossmatch IS Only See Detail 02/26/17 02/26/17 02/26/17 10:30 10:30 11:30 WBC 6.9 RBC 3.41 L Hgb 10.1 L D Hct 29.6 L D MCV 86.8 MCH 29.8 MCHC 34.3 RDW 14.1 Plt Count 140 MPV 8.2 Neutrophils % 60.2 D Lymphocytes % 31.2 D Monocytes % 8.1 D Eosinophils % 0.1 Basophils % 0.4 PT with INR 12.50 H INR 1.11 PTT (Actin FS) 29.9 Sodium 140 Potassium 3.1 L Chloride 107 Carbon Dioxide 28 Anion Gap 5 L BUN 13 Creatinine 0.4 L Creat Clearance w eGFR > 60 Random Glucose 152 H Calcium 7.3 L Phosphorus 1.3 L Magnesium 2.0 Total Bilirubin 0.6 AST 29 ALT 19 Alkaline Phosphatase 45 Total Protein 4.3 L Albumin 1.7 L Blood Type Antibody Screen Crossmatch Crossmatch IS Only Active Medications Generic Name Dose Route Start Last Admin Trade Name Freq PRN Reason Stop Dose Admin Acetaminophen 1,000 mg 02/24/17 09:23 Ofirmev Injection - IVPB Q6H PRN PAIN Aspirin 325 mg 02/24/17 10:00 02/26/17 09:19 Asa - PO 325 mg DAILY JOSSELYN Administration Chlorhexidine Gluconate 1 applic 02/24/17 22:00 02/25/17 21:52 Hibiclens For Decolonization - TP 1 applic HS JOSSELYN Administration Diazepam 5 mg 02/24/17 09:23 02/26/17 04:12 Valium - PO 5 mg Q8H PRN Administration ANXIETY Diphenhydramine HCl 25 mg 02/24/17 09:23 Benadryl Injection - IVPB Q4H PRN FOR ITCHING Docusate Sodium 100 mg 02/24/17 10:00 02/26/17 09:19 Colace - PO 100 mg BID JOSSELYN Administration Enoxaparin Sodium 40 mg 02/24/17 10:00 02/26/17 09:16 Lovenox - SQ 40 mg DAILY JOSSELYN Administration Fentanyl 50 mcg 02/25/17 15:55 Sublimaze Injection - IVPUSH [id number] PRN PAIN-PACU ORDER X 4 DOSES ONLY Fluoxetine HCl 10 mg 02/24/17 22:00 02/25/17 21:52 Prozac - PO 10 mg HS JOSSELYN Administration Heparin Sodium (Porcine) 5,000 unit 02/25/17 21:27 Heparin - IVPUSH PRN PRN Heparin Heparin Sodium (Porcine) 1,000 unit 02/25/17 21:27 Heparin - IVPUSH PRN PRN Heparin Hydromorphone HCl 1 mg 02/24/17 09:23 02/26/17 11:57 Dilaudid Injection - IVPB 1 mg Q3H6XD PRN Administration PAIN Cefazolin Sodium 1 gm in 10 mls @ 100 mls/hr 02/24/17 15:00 02/26/17 09:16 Ancef - IVPUSH 100 mls/hr Q6H-IV JOSSELYN Administration HEPARIN SOD,PORK IN 0.45% NACL 25,000 unit in 500 mls @ 10 mls/hr 02/25/17 13: 00 02/25/17 16:00 Heparin-1/2ns 25,000 Units/500 IVPB 500 units/hr TITR JOSSELYN 10 mls/hr Protocol Administration 500 UNITS/HR Lactated Ringer's 1,000 mls @ 75 mls/hr 02/25/17 16:00 02/25/17 16:51 Lactated Ringers Solution IV 75 mls/hr ASDIR JOSSELYN Administration Mupirocin 1 applic 02/24/17 10:00 02/26/17 09:19 Bactroban Ointment (For Decolonization) - NS 03/01/17 09:59 1 applic BID JOSSELYN Administration Ondansetron HCl 4 mg 02/25/17 15:55 Zofran Injection IVPUSH Q6H PRN NAUSEA AND/OR VOMITING Oxycodone HCl 5 mg 02/24/17 18:35 Roxicodone - PO Q4H PRN PAIN LEVEL 1-5 Oxycodone HCl 10 mg 02/24/17 09:23 Roxicodone - PO Q4H PRN PAIN LEVEL 6-10 Potassium Chloride 40 meq 02/26/17 12:45 K-Dur - PO 02/26/17 12:46 ONCE ONE Promethazine HCl 12.5 mg 02/25/17 15:55 Phenergan Injection - IVPB Q6H PRN NAUSEA-FOR RESCUE AFTER 15 MIN ASSESSMENT/PLAN: The patient is a 51 year old female with a history of breast CA s/p resection and a breast flap reconstruction and BEV flap revision admitted to the ICU for flap checks. S/P surgical reconstruction and BEV flap revision Patient was taken back to the OR yesterday for decreased perfusion to the right breast flap. She reports improvement in her symptoms. -Post-op management as per surgical team -Q1h breast flap doppler pulse check -Monitor MARGIE output -Keep incisions clean dry and open to air -Pain management: Continue Roxicodone, Fentanyl -Continue Ancef for now NEURO No Issues currently. -Awake and Oriented x3 CV No Issues currently. -Will continue to monitor RESP No Issues currently. -Will continue to monitor GI No Issues currently. Heme #Anemia Patient's hgb was noted to be 6.5 this morning. -Received 2 units of PRBC in the OR per anesthesia. -HGB impoved to 10.1 on labs this morning. -Will continue to monitor. Renal -Stable BUN/creatinine -Will continue to monitor. ID Will continue antibiotic treatment with ancef for now. MSK No issues currently FEN/GI -Replete electrolytes PRN, will monitor PPX -On a heparin drip. DISPO: Continue ICU level of care. Visit type - Emergency Visit Emergency Visit: No - New Patient This patient is new to me today: No - Critical Care Critical Care patient: Yes Total Critical Care Time (in minutes): 35 Critical Care Statement: The care of this patient involved high complexity decision making to prevent further life threatening deterioration of the patient 's condition and/or to evaluate & treat vital organ system(s) failure or risk of failure.
[2017-02-26] MEDS ORDERED: POTASSIUM CHLORIDE TABS 20 MEQ TABLET.ER (FP) PO ONE (12:45)
--- NOTE | 2017-02-26 12:47 | PN ---
Teaching Attending Note Name of Resident: Santos Ruiz ATTENDING PHYSICIAN STATEMENT I saw and evaluated the patient. I reviewed the resident's note and discussed the case with the resident. I agree with the resident's findings and plan as documented. SUBJECTIVE: Patient seen and examined in ICU. Awake and alert Taken back to OR for re-exploration after flap dusky. H/H lower this AM. OBJECTIVE: Last Vital Signs Temp Pulse Resp BP Pulse Ox 99.6 F 93 H 20 108/71 96 02/25/17 06:00 02/25/17 10:00 02/25/17 10:00 02/25/17 10:00 02/25/17 07:46 Intake & Output 02/22/17 02/23/17 02/24/17 02/25/17 23:59 23:59 23:59 23:59 Intake Total 6300 2102.5 1840 Output Total 2085 2934 484 Balance 4215 -831.5 1356 Weight 67.585 kg 72.938 kg 74.933 kg Active Medications Acetaminophen (Ofirmev Injection -) 1,000 mg IVPB Q6H PRN PRN Reason: PAIN Aspirin (Asa -) 325 mg PO DAILY [facility] Last Admin: 02/26/17 09:19 Dose: 325 mg Chlorhexidine Gluconate (Hibiclens For Decolonization -) 1 applic TP [facility] Last Admin: 02/25/17 21:52 Dose: 1 applic Diazepam (Valium -) 5 mg PO Q8H PRN PRN Reason: ANXIETY Last Admin: 02/26/17 04:12 Dose: 5 mg Diphenhydramine HCl (Benadryl Injection -) 25 mg IVPB Q4H PRN PRN Reason: FOR ITCHING Docusate Sodium (Colace -) 100 mg PO BID [facility] Last Admin: 02/26/17 09:19 Dose: 100 mg Enoxaparin Sodium (Lovenox -) 40 mg SQ DAILY [facility] Last Admin: 02/26/17 09:16 Dose: 40 mg Fentanyl (Sublimaze Injection -) 50 mcg IVPUSH [id number] PRN PRN Reason: PAIN-PACU ORDER X 4 DOSES ONLY Fluoxetine HCl (Prozac -) 10 mg PO HS [facility] Last Admin: 02/25/17 21:52 Dose: 10 mg Heparin Sodium (Porcine) (Heparin -) 5,000 unit IVPUSH PRN PRN PRN Reason: Heparin Heparin Sodium (Porcine) (Heparin -) 1,000 unit IVPUSH PRN PRN PRN Reason: Heparin Hydromorphone HCl (Dilaudid Injection -) 1 mg IVPB Q3H6XD PRN PRN Reason: PAIN Last Admin: 02/26/17 11:57 Dose: 1 mg Cefazolin Sodium (Ancef -) 1 gm in 10 mls @ 100 mls/hr IVPUSH Q6H-IV JOSSELYN Last Admin: 02/26/17 09:16 Dose: 100 mls/hr HEPARIN SOD,PORK IN 0.45% NACL (Heparin-1/2ns 25,000 Units/500) 25,000 unit in 500 mls @ 10 mls/hr IVPB TITR JOSSELYN; 500 UNITS/HR PRN Reason: Protocol Last Admin: 02/25/17 16:00 Dose: 500 units/hr, 10 mls/hr Lactated Ringer's (Lactated Ringers Solution) 1,000 mls @ 75 mls/hr IV ASDIR JOSSELYN Last Admin: 02/25/17 16:51 Dose: 75 mls/hr Mupirocin (Bactroban Ointment (For Decolonization) -) 1 applic NS BID [facility] Stop: 03/01/17 09:59 Last Admin: 02/26/17 09:19 Dose: 1 applic Ondansetron HCl (Zofran Injection) 4 mg IVPUSH Q6H PRN PRN Reason: NAUSEA AND/OR VOMITING Oxycodone HCl (Roxicodone -) 5 mg PO Q4H PRN PRN Reason: PAIN LEVEL 1-5 Oxycodone HCl (Roxicodone -) 10 mg PO Q4H PRN PRN Reason: PAIN LEVEL 6-10 Promethazine HCl (Phenergan Injection -) 12.5 mg IVPB Q6H PRN PRN Reason: NAUSEA-FOR RESCUE AFTER 15 MIN Gen: NAD Heart: RRR Lung: decreased breath sounds at the bases Abd: soft, nontender Ext: no edema Laboratory Results - last 24 hr 02/23/17 02/25/17 02/25/17 21:50 19:30 19:30 WBC 7.2 RBC 2.87 L D Hgb 8.5 L D Hct 25.2 L D MCV 87.8 MCH 29.5 MCHC 33.7 RDW 14.3 Plt Count 174 MPV 8.8 Neutrophils % Lymphocytes % Monocytes % Eosinophils % Basophils % PT with INR INR PTT (Actin FS) 23.3 L Sodium Potassium Chloride Carbon Dioxide Anion Gap BUN Creatinine Creat Clearance w eGFR Random Glucose Calcium Phosphorus Magnesium Total Bilirubin AST ALT Alkaline Phosphatase Total Protein Albumin Blood Type A POSITIVE Antibody Screen Negative Crossmatch See Detail Crossmatch IS Only See Detail 02/26/17 02/26/17 02/26/17 10:30 10:30 11:30 WBC 6.9 RBC 3.41 L Hgb 10.1 L D Hct 29.6 L D MCV 86.8 MCH 29.8 MCHC 34.3 RDW 14.1 Plt Count 140 MPV 8.2 Neutrophils % 60.2 D Lymphocytes % 31.2 D Monocytes % 8.1 D Eosinophils % 0.1 Basophils % 0.4 PT with INR 12.50 H INR 1.11 PTT (Actin FS) 29.9 Sodium 140 Potassium 3.1 L Chloride 107 Carbon Dioxide 28 Anion Gap 5 L BUN 13 Creatinine 0.4 L Creat Clearance w eGFR > 60 Random Glucose 152 H Calcium 7.3 L Phosphorus 1.3 L Magnesium 2.0 Total Bilirubin 0.6 AST 29 ALT 19 Alkaline Phosphatase 45 Total Protein 4.3 L Albumin 1.7 L Blood Type Antibody Screen Crossmatch Crossmatch IS Only ASSESSMENT AND PLAN: Breast Ca s/p mastectomies/implants now s/p bilateral BEV reconstructions s/p Hematoma Evacuation Acute Blood Loss Anemia - pain control - incentive spirometry - flap monitoring - monitor drain output - monitor H/H - Normal transfusion thresholds - PO as tolerated - DVT prophylaxis Dr Okeefe
--- NOTE | 2017-02-26 13:58 | PATH ---
Surgical Pathology Report Patient Name: SUKI CABRERA [facility]. Rec. #: [id number] /Age/Gender: 1965 (Age: 51) / F Account: [id number] [facility] Taken: 02/23/2017 Received: 02/24/2017 Reported: 02/26/2017 Physicians: Pierce Bermudez M.D. Specimen(s) Received A: REMOVED RIGHT BREAST IMPLANT B: BREAST CAPSULE C: REMOVED LEFT BREAST IMPLANT D: LEFT CAPSULE Clinical History Breast cancer Final Diagnosis A. BREAST IMPLANT, RIGHT, REMOVAL: BREAST PROSTHESIS. MACROSCOPIC DIAGNOSIS. B. BREAST CAPSULE, RIGHT, EXCISION: BENIGN DENSE FIBROCONNECTIVE TISSUE CONSISTENT WITH FIBROUS CAPSULE, SKELETAL MUSCLE, AND ADIPOSE TISSUE. C. BREAST IMPLANT, LEFT, REMOVAL: BREAST PROSTHESIS. MACROSCOPIC DIAGNOSIS. D. BREAST CAPSULE, LEFT, EXCISION: BENIGN DENSE FIBROCONNECTIVE TISSUE CONSISTENT WITH FIBROUS CAPSULE, SKELETAL MUSCLE, AND ADIPOSE TISSUE. Electronically Signed Juju Hutchins M.D. Gross Description A. Received fresh labeled "removed right breast implant," is a 15.0 x 15.0 x 5.0 cm rubbery breast implant. No soft tissue is present. No sections are submitted, gross only. B. Received in formalin labeled "right capsule," is a 7.0 x 5.0 x 0.4 cm aggregate of multiple proctor-pink, irregular portions of fibrous tissue with minimal attached fat, consistent with portions of a fibrous capsule. Director Cpg sections are submitted in one cassette. C. Received fresh labeled "removed left breast implant," is a 15.0 x 15.0 x 5.0 cm rubbery breast implant. No soft tissue is present. No sections are submitted, gross only. D. Received in formalin labeled "left capsule," is a 10.0 x 5.5 x 0.4 cm portion of fibrous tissue with minimal attached fat, consistent with a fibrous capsule. Director Cpg sections are submitted in one cassette. [id number]/24/[id number]
[2017-02-26] MEDS: HEPARIN SOD,PORK IN 0.45% NACL 25,000 UNIT/500 ML INFUS.BAG IVPB SCH (14:00)
[2017-02-26] MEDS: LACTATED RINGERS SOLUTION 1,000 ML IV SCH (15:00)
[2017-02-26] MEDS ORDERED: HYDROmorphone HCL CARPU-JECT 1 MG/1 ML DISP.SYRIN ONE (16:18)
[2017-02-26] MEDS: oxyCODONE HCL 5 MG TABLET PO PRN (21:53)
[2017-02-26] MEDS: CHLORHEXIDINE GLUCONATE 4% CLEANSER FOR DECOLONIZATION TP SCH (21:53)
[2017-02-26] MEDS: FLUoxetine HCL 10 MG CAPSULE (FP) PO SCH (21:53)
[2017-02-27] MEDS: CEFAZOLIN 1 GM PUSH 1 GM/10 ML DISP.SYRIN IVPUSH SCH ×4 (02:44→21:32)
[2017-02-27] MEDS: oxyCODONE HCL 5 MG TABLET PO PRN ×3 (05:54→19:27)
[2017-02-27 06:20] LABS: BASO % 0.3 % (0-2.0); HEMATOCRIT 29.2 % (32.4-45.2); LYMPH % 29.2 % (8-40); MCH 30.1 pg (25.7-33.7); MCHC 34.2 g/dl (32.0-36.0); MEAN CELL VOLUME 87.9 fl (80-96); MEAN PLT VOLUME 8.3 fl (7.5-11.1); MONO % 7.7 % (3.8-10.2); NEUT % 61.8 % (42.8-82.8); PLATELET COUNT 185 K/MM3 (134-434); RBC 3.32 M/mm3 (3.60-5.2); RDW 14.4 % (11.6-15.6)
[2017-02-27] MEDS: HEPARIN SOD,PORK IN 0.45% NACL 25,000 UNIT/500 ML INFUS.BAG IVPB SCH (06:43)
[2017-02-27 06:56] LABS: ALBUMIN 1.7 g/dl (3.4-5.0); ANION GAP 7 (8-16); BILIRUBIN,TOTAL 0.5 mg/dL (0.2-1.0); BLOOD UREA NITROGEN 10 mg/dL (7-18); CALCIUM 7.1 mg/dL (8.5-10.1); CHLORIDE 104 mmol/L (98-107); CO2 29 mmol/L (21-32); CREATININE 0.3 mg/dL (0.55-1.02); GLUCOSE,RANDOM 101 mg/dL (74-106); MAGNESIUM 1.9 mg/dL (1.8-2.4); POTASSIUM 3.5 mmol/L (3.5-5.1); SGOT/AST 25 U/L (15-37); SGPT/ALT 21 U/L (12-78); SODIUM 140 mmol/L (136-145); TOT PROT 4.5 g/dl (6.4-8.2)
[2017-02-27 07:02] LABS: ALK PHOS 48 U/L (45-117); PHOSPHOROUS 1.3 mg/dL (2.5-4.9)
[2017-02-27] MEDS ORDERED: PT OWN MED DRAWER 7, Y5N ONE ×2 (08:13→20:55)
[2017-02-27] MEDS: ASPIRIN 325 MG TABLET PO SCH (09:00)
[2017-02-27] MEDS: MUPIROCIN 2% TOPICAL OINTMENT FOR DECOLONIZATION NS SCH ×2 (09:01→21:32)
[2017-02-27] MEDS: ENOXAPARIN NA (PORCINE) 40 MG/0.4 ML DISP.SYRIN SQ SCH (09:01)
[2017-02-27] MEDS: DOCUSATE SODIUM 100 MG CAPSULE (FP) PO SCH ×2 (09:01→21:32)
--- NOTE | 2017-02-27 10:07 | PN ---
Progress Note (short form) - Note Progress Note: Patient seen and examined in ICU. Awake and alert Feels a little better today. Some dry cough. Pain seems adequately controlled. OBJECTIVE: Intake & Output 02/24/17 02/25/17 02/26/17 02/27/17 23:59 23:59 23:59 23:59 Intake Total 2102.5 4985 3130 465 Output Total 2934 2588 2047 146 Balance -831.5 2397 1083 319 Weight 160 lb 12.8 oz 165 lb 3.2 oz 163 lb 1.6 oz 166 lb 3.2 oz Last Vital Signs Temp Pulse Resp BP Pulse Ox 98.4 F 86 18 124/88 94 L 02/27/17 06:00 02/27/17 09:37 02/27/17 09:37 02/27/17 09:37 02/27/17 07:56 Active Medications Acetaminophen (Ofirmev Injection -) 1,000 mg IVPB Q6H PRN PRN Reason: PAIN Aspirin (Asa -) 325 mg PO DAILY [facility] Last Admin: 02/27/17 09:00 Dose: 325 mg Chlorhexidine Gluconate (Hibiclens For Decolonization -) 1 applic TP [facility] Last Admin: 02/26/17 21:53 Dose: 1 applic Diazepam (Valium -) 5 mg PO Q8H PRN PRN Reason: ANXIETY Last Admin: 02/26/17 04:12 Dose: 5 mg Diphenhydramine HCl (Benadryl Injection -) 25 mg IVPB Q4H PRN PRN Reason: FOR ITCHING Docusate Sodium (Colace -) 100 mg PO BID [facility] Last Admin: 02/27/17 09:01 Dose: 100 mg Enoxaparin Sodium (Lovenox -) 40 mg SQ DAILY [facility] Last Admin: 02/27/17 09:01 Dose: 40 mg Fentanyl (Sublimaze Injection -) 50 mcg IVPUSH [id number] PRN PRN Reason: PAIN-PACU ORDER X 4 DOSES ONLY Fluoxetine HCl (Prozac -) 10 mg PO HS [facility] Last Admin: 02/26/17 21:53 Dose: 10 mg Heparin Sodium (Porcine) (Heparin -) 5,000 unit IVPUSH PRN PRN PRN Reason: Heparin Heparin Sodium (Porcine) (Heparin -) 1,000 unit IVPUSH PRN PRN PRN Reason: Heparin Hydromorphone HCl (Dilaudid Injection -) 1 mg IVPB Q3H6XD PRN PRN Reason: PAIN Last Admin: 02/26/17 16:25 Dose: 1 mg Cefazolin Sodium (Ancef -) 1 gm in 10 mls @ 100 mls/hr IVPUSH Q6H-IV JOSSELYN Last Admin: 02/27/17 08:23 Dose: 100 mls/hr HEPARIN SOD,PORK IN 0.45% NACL (Heparin-1/2ns 25,000 Units/500) 25,000 unit in 500 mls @ 10 mls/hr IVPB TITR JOSSELYN; 500 UNITS/HR PRN Reason: Protocol Last Admin: 02/27/17 06:43 Dose: 500 units/hr, 10 mls/hr Mupirocin (Bactroban Ointment (For Decolonization) -) 1 applic NS BID JOSSELYN Stop: 03/01/17 09:59 Last Admin: 02/27/17 09:01 Dose: 1 applic Ondansetron HCl (Zofran Injection) 4 mg IVPUSH Q6H PRN PRN Reason: NAUSEA AND/OR VOMITING Oxycodone HCl (Roxicodone -) 5 mg PO Q4H PRN PRN Reason: PAIN LEVEL 1-5 Oxycodone HCl (Roxicodone -) 10 mg PO Q4H PRN PRN Reason: PAIN LEVEL 6-10 Last Admin: 02/27/17 09:41 Dose: 10 mg Promethazine HCl (Phenergan Injection -) 12.5 mg IVPB Q6H PRN PRN Reason: NAUSEA-FOR RESCUE AFTER 15 MIN Gen: NAD Heart: RRR Lung: Post op changes, decreased breath sounds at the bases Abd: soft, nontender Ext: no edema Laboratory Results - last 24 hr 02/26/17 02/26/17 02/26/17 10:30 10:30 11:30 WBC 6.9 RBC 3.41 L Hgb 10.1 L D Hct 29.6 L D MCV 86.8 MCH 29.8 MCHC 34.3 RDW 14.1 Plt Count 140 MPV 8.2 Neutrophils % 60.2 D Lymphocytes % 31.2 D Monocytes % 8.1 D Eosinophils % 0.1 Basophils % 0.4 PT with INR 12.50 H INR 1.11 PTT (Actin FS) 29.9 Sodium 140 Potassium 3.1 L Chloride 107 Carbon Dioxide 28 Anion Gap 5 L BUN 13 Creatinine 0.4 L Creat Clearance w eGFR > 60 Random Glucose 152 H Calcium 7.3 L Phosphorus 1.3 L Magnesium 2.0 Total Bilirubin 0.6 AST 29 ALT 19 Alkaline Phosphatase 45 Total Protein 4.3 L Albumin 1.7 L 02/27/17 02/27/17 05:55 05:55 WBC 7.0 RBC 3.32 L Hgb 10.0 L Hct 29.2 L MCV 87.9 MCH 30.1 MCHC 34.2 RDW 14.4 Plt Count 185 D MPV 8.3 Neutrophils % 61.8 Lymphocytes % 29.2 Monocytes % 7.7 Eosinophils % 1.0 D Basophils % 0.3 PT with INR INR PTT (Actin FS) Sodium 140 Potassium 3.5 Chloride 104 Carbon Dioxide 29 Anion Gap 7 L BUN 10 Creatinine 0.3 L Creat Clearance w eGFR > 60 Random Glucose 101 Calcium 7.1 L Phosphorus 1.3 L Magnesium 1.9 Total Bilirubin 0.5 AST 25 ALT 21 Alkaline Phosphatase 48 Total Protein 4.5 L Albumin 1.7 L ASSESSMENT AND PLAN: Breast Ca s/p mastectomies/implants now s/p bilateral BEV reconstructions s/p Hematoma Evacuation Acute Blood Loss Anemia - pain control - incentive spirometry - flap monitoring - monitor drain output - monitor H/H - Normal transfusion thresholds - PO as tolerated - DVT prophylaxis Dr Okeefe
--- NOTE | 2017-02-27 15:38 | PN ---
Progress Note (short form) - Note Progress Note: Right Breast with good biphasic Doppler signal. Skin hyperemic and warm despite pt being afebrile but not surprised as right side was manipulated three days in a row. Right side also more swollen than Left- also expected. On antibiotics- continue. WBC: 7.0. Left breast soft and monitoring paddle pink. Minimal Left Breast MARGIE drainage- Superficial Left Breast MARGIE drain removed. Will plan on removing deep drain tomorrow. Abdominal wound clean and dry but significant serous drainage- about 50cc each drain last three hours- so will keep in and monitor. Patient has been out of Bed- walked to bathroom- will encourage OOB. SCD's now off but will encourage use while in bed. Will continue Lovenox but D/C IV Heparin at this point.
[2017-02-27] MEDS: FLUoxetine HCL 10 MG CAPSULE (FP) PO SCH (21:32)
[2017-02-27] MEDS: diazePAM 5 MG TABLET PO PRN (21:32)
[2017-02-27] MEDS: CHLORHEXIDINE GLUCONATE 4% CLEANSER FOR DECOLONIZATION TP SCH (21:32)
[2017-02-28] MEDS: oxyCODONE HCL 5 MG TABLET PO PRN ×4 (03:48→22:14)
[2017-02-28] MEDS: CEFAZOLIN 1 GM PUSH 1 GM/10 ML DISP.SYRIN IVPUSH SCH ×3 (03:54→15:03)
[2017-02-28 05:59] LABS: HEMATOCRIT 30.3 % (32.4-45.2); HEMOGLOBIN 10.2 GM/dL (10.7-15.3); MCH 29.7 pg (25.7-33.7); MCHC 33.7 g/dl (32.0-36.0); MEAN PLT VOLUME 7.8 fl (7.5-11.1); PLATELET COUNT 231 K/MM3 (134-434); RBC 3.44 M/mm3 (3.60-5.2); RDW 14.1 % (11.6-15.6)
[2017-02-28 06:32] LABS: ALBUMIN 1.9 g/dl (3.4-5.0); ANION GAP 7 (8-16); BILIRUBIN,TOTAL 0.5 mg/dL (0.2-1.0); BLOOD UREA NITROGEN 6 mg/dL (7-18); CALCIUM 7.7 mg/dL (8.5-10.1); CHLORIDE 103 mmol/L (98-107); CO2 30 mmol/L (21-32); CREATININE 0.2 mg/dL (0.55-1.02); GLUCOSE,RANDOM 100 mg/dL (74-106); MAGNESIUM 1.9 mg/dL (1.8-2.4); PHOSPHOROUS 2.6 mg/dL (2.5-4.9); POTASSIUM 3.2 mmol/L (3.5-5.1); SGOT/AST 28 U/L (15-37); SGPT/ALT 26 U/L (12-78); SODIUM 140 mmol/L (136-145); TOT PROT 4.9 g/dl (6.4-8.2)
[2017-02-28 06:33] LABS: ALK PHOS 59 U/L (45-117)
[2017-02-28] MEDS: ENOXAPARIN NA (PORCINE) 40 MG/0.4 ML DISP.SYRIN SQ SCH (09:30)
[2017-02-28] MEDS: ASPIRIN 325 MG TABLET PO SCH (09:30)
[2017-02-28] MEDS: DOCUSATE SODIUM 100 MG CAPSULE (FP) PO SCH ×2 (09:30→22:13)
--- NOTE | 2017-02-28 10:09 | PN ---
Progress Note (short form) - Note Progress Note: Patient seen and examined in ICU. Awake and alert. Doing much better with IS: 750. Feels better today. OOB to chair. Minimal dry cough. Pain seems adequately controlled. OBJECTIVE: Intake & Output 02/25/17 02/26/17 02/27/17 02/28/17 23:59 23:59 23:59 23:59 Intake Total 4907 3130 2115 500 Output Total 2588 2047 640 800 Balance 2397 1083 1475 -300 Weight 165 lb 3.2 oz 163 lb 1.6 oz 166 lb 3.2 oz 163 lb Last Vital Signs Temp Pulse Resp BP Pulse Ox 98.0 F 86 20 121/80 95 02/28/17 02:00 02/28/17 08:00 02/28/17 08:00 02/28/17 08:00 02/28/17 08:00 Active Medications Acetaminophen (Ofirmev Injection -) 1,000 mg IVPB Q6H PRN PRN Reason: PAIN Aspirin (Asa -) 325 mg PO DAILY [facility] Last Admin: 02/28/17 09:30 Dose: 325 mg Chlorhexidine Gluconate (Hibiclens For Decolonization -) 1 applic TP [facility] Last Admin: 02/27/17 21:32 Dose: 1 applic Diazepam (Valium -) 5 mg PO Q8H PRN PRN Reason: ANXIETY Last Admin: 02/27/17 21:32 Dose: 5 mg Diphenhydramine HCl (Benadryl Injection -) 25 mg IVPB Q4H PRN PRN Reason: FOR ITCHING Docusate Sodium (Colace -) 100 mg PO BID [facility] Last Admin: 02/28/17 09:30 Dose: 100 mg Enoxaparin Sodium (Lovenox -) 40 mg SQ DAILY [facility] Last Admin: 02/28/17 09:30 Dose: 40 mg Fentanyl (Sublimaze Injection -) 50 mcg IVPUSH [id number] PRN PRN Reason: PAIN-PACU ORDER X 4 DOSES ONLY Fluoxetine HCl (Prozac -) 10 mg PO HS [facility] Last Admin: 02/27/17 21:32 Dose: 10 mg Heparin Sodium (Porcine) (Heparin -) 5,000 unit IVPUSH PRN PRN PRN Reason: Heparin Hydromorphone HCl (Dilaudid Injection -) 1 mg IVPB Q3H6XD PRN PRN Reason: PAIN Last Admin: 02/26/17 16:25 Dose: 1 mg Cefazolin Sodium (Ancef -) 1 gm in 10 mls @ 100 mls/hr IVPUSH Q6H-IV JOSSELYN Last Admin: 02/28/17 09:29 Dose: 100 mls/hr Mupirocin (Bactroban Ointment (For Decolonization) -) 1 applic NS BID JOSSELYN Stop: 03/01/17 09:59 Last Admin: 02/27/17 21:32 Dose: 1 applic Ondansetron HCl (Zofran Injection) 4 mg IVPUSH Q6H PRN PRN Reason: NAUSEA AND/OR VOMITING Oxycodone HCl (Roxicodone -) 5 mg PO Q4H PRN PRN Reason: PAIN LEVEL 1-5 Oxycodone HCl (Roxicodone -) 10 mg PO Q4H PRN PRN Reason: PAIN LEVEL 6-10 Last Admin: 02/28/17 10:03 Dose: 10 mg Promethazine HCl (Phenergan Injection -) 12.5 mg IVPB Q6H PRN PRN Reason: NAUSEA-FOR RESCUE AFTER 15 MIN Gen: NAD Heart: RRR Lung: Post op changes, less swelling and erythema, decreased breath sounds at the bases Abd: soft, nontender Ext: no edema Laboratory Results - last 24 hr 02/23/17 02/28/17 02/28/17 21:50 05:26 05:26 WBC 7.0 RBC 3.44 L Hgb 10.2 L Hct 30.3 L MCV 88.0 MCH 29.7 MCHC 33.7 RDW 14.1 Plt Count 231 D MPV 7.8 PTT (Actin FS) Sodium 140 Potassium 3.2 L Chloride 103 Carbon Dioxide 30 Anion Gap 7 L BUN 6 L Creatinine 0.2 L Creat Clearance w eGFR > 60 Random Glucose 100 Calcium 7.7 L Phosphorus 2.6 Magnesium 1.9 Total Bilirubin 0.5 AST 28 ALT 26 Alkaline Phosphatase 59 Total Protein 4.9 L Albumin 1.9 L Blood Type A POSITIVE Antibody Screen Negative Crossmatch See Detail Crossmatch IS Only See Detail 02/28/17 05:26 WBC RBC Hgb Hct MCV MCH MCHC RDW Plt Count MPV PTT (Actin FS) 24.8 L Sodium Potassium Chloride Carbon Dioxide Anion Gap BUN Creatinine Creat Clearance w eGFR Random Glucose Calcium Phosphorus Magnesium Total Bilirubin AST ALT Alkaline Phosphatase Total Protein Albumin Blood Type Antibody Screen Crossmatch Crossmatch IS Only ASSESSMENT AND PLAN: Breast Ca s/p mastectomies/implants now s/p bilateral BEV reconstructions s/p Hematoma Evacuation Acute Blood Loss Anemia - OOB to chair / Ambulate - pain control - incentive spirometry - flap monitoring - monitor drain output - monitor H/H - Normal transfusion thresholds - PO as tolerated - DVT prophylaxis Dr Okeefe
[2017-02-28] MEDS: MUPIROCIN 2% TOPICAL OINTMENT FOR DECOLONIZATION NS SCH ×2 (10:25→22:14)
[2017-02-28] MEDS ORDERED: POTASSIUM CHLORIDE TABS 20 MEQ TABLET.ER (FP) PO ONE ×2 (11:00→20:00)
--- NOTE | 2017-02-28 16:11 | PN ---
Progress Note (short form) - Note Progress Note: Improving. Much better spirits today. Remains afebrile. Left Breast Flap viable skin paddle, soft. Minimal drainage from posterior MARGIE drain- Removed. Now all drains removed from Left Breast. Right breast: Good biphasic doppler signal. Slight hyperemia of lower-pole skin slightly improved from yesterday but hyperemia persists. Breast firmer than Left as expected but unchanged from yesterday. MARGIE drains will slight drainage but will leave at this point. Modest MARGIE drainage from Right abdominal drain, minimal from left. Will keep abdominal drains at this time. Patient is OOB with assistance and SCD's are being used while in bed. WBC:7.0 Hct slowly rising. Plan: Drain management, continue IV antibiotics and pain management. Encourage OOB
[2017-02-28] MEDS ORDERED: PT OWN MED DRAWER 7, Y5N ONE (21:37)
[2017-02-28] MEDS: FLUoxetine HCL 10 MG CAPSULE (FP) PO SCH (22:13)
[2017-02-28] MEDS: CHLORHEXIDINE GLUCONATE 4% CLEANSER FOR DECOLONIZATION TP SCH (22:13)
[2017-02-28] MEDS: diazePAM 5 MG TABLET PO PRN (22:14)
[2017-03-01] MEDS ORDERED: POTASSIUM CHLORIDE TABS 20 MEQ TABLET.ER (FP) PO ONE (07:51)
[2017-03-01] MEDS: oxyCODONE HCL 5 MG TABLET PO PRN ×2 (08:00→19:39)
[2017-03-01 08:56] LABS: ANION GAP 5 (8-16); BLOOD UREA NITROGEN 6 mg/dL (7-18); CHLORIDE 104 mmol/L (98-107); CO2 28 mmol/L (21-32); CREATININE 0.3 mg/dL (0.55-1.02); GLUCOSE,RANDOM 91 mg/dL (74-106); POTASSIUM 4.8 mmol/L (3.5-5.1); SODIUM 137 mmol/L (136-145)
[2017-03-01] MEDS ORDERED: PT OWN MED DRAWER 7, Y5N ONE ×2 (09:31→21:30)
[2017-03-01] MEDS: ENOXAPARIN NA (PORCINE) 40 MG/0.4 ML DISP.SYRIN SQ SCH (09:54)
[2017-03-01] MEDS: ASPIRIN 325 MG TABLET PO SCH (09:55)
[2017-03-01] MEDS: DOCUSATE SODIUM 100 MG CAPSULE (FP) PO SCH ×2 (09:55→22:24)
--- NOTE | 2017-03-01 12:19 | PN ---
Physical Exam: SUBJECTIVE: Patient seen and examined The patient is a 51 year old female with a history of breast CA s/p resection and a breast flap reconstruction and BEV flap revision admitted to the ICU for flap checks. Patient reported a rash this morning that is not new. She states that overall, she feels like she is improving. Otherwise, no acute events overnight. OBJECTIVE: Vital Signs Period Temp Pulse Resp BP Sys/Self Pulse Ox Last 24 Hr 97.9 F-99.0 F 77-98 16-20 98-128/40-83 96-96 GENERAL: The patient is awake, alert, and fully oriented, in no acute distress. HEAD: Normal with no signs of trauma. EYES: sclera anicteric, conjunctiva clear. No ptosis. ENT: nares patent, oropharynx clear without exudates, moist mucous membranes. NECK: Trachea midline, full range of motion, supple. LUNGS/CHEST: s/p breast reconstruction, long horizontal scar across lower abdomen. Well healing wounds with normal capillary refill. Breath sounds equal , clear to auscultation bilaterally, no wheezes, no crackles, no accessory muscle use. HEART: Regular rate and rhythm, S1, S2 without murmur, rub or gallop. ABDOMEN: Soft, nontender, nondistended, normoactive bowel sounds, no guarding, no rebound, no hepatosplenomegaly, no masses. EXTREMITIES: 2+ pulses, warm, well-perfused, no edema. NEUROLOGICAL: Normal speech, gait not observed. PSYCH: Normal mood, normal affect. SKIN: Warm, dry, normal turgor, no rashes or lesions noted Laboratory Results - last 24 hr 02/23/17 03/01/17 21:50 08:25 Sodium 137 Potassium 4.8 Chloride 104 Carbon Dioxide 28 Anion Gap 5 L BUN 6 L Creatinine 0.3 L Random Glucose 91 Calcium 8.0 L Blood Type A POSITIVE Antibody Screen Negative Crossmatch See Detail Crossmatch IS Only See Detail Active Medications Generic Name Dose Route Start Last Admin Trade Name Freq PRN Reason Stop Dose Admin Acetaminophen 1,000 mg 02/24/17 09:23 Ofirmev Injection - IVPB Q6H PRN PAIN Al Hydroxide/Mg Hydroxide 30 ml 03/01/17 12:30 Mylanta Oral Suspension - PO 03/01/17 12:31 ONCE ONE Aspirin 325 mg 02/24/17 10:00 03/01/17 09:55 Asa - PO 325 mg DAILY JOSSELYN Administration Chlorhexidine Gluconate 1 applic 02/24/17 22:00 02/28/17 22:13 Hibiclens For Decolonization - TP 1 applic HS JOSSELYN Administration Diazepam 5 mg 02/28/17 20:20 02/28/17 22:14 Valium - PO 03/01/17 20:19 5 mg Q8H PRN Administration WITHDRAWAL(CONT SUBST) Diphenhydramine HCl 25 mg 02/24/17 09:23 Benadryl Injection - IVPB Q4H PRN FOR ITCHING Docusate Sodium 100 mg 02/24/17 10:00 03/01/17 09:55 Colace - PO 100 mg BID JOSSELYN Administration Enoxaparin Sodium 40 mg 02/24/17 10:00 03/01/17 09:54 Lovenox - SQ 40 mg DAILY JOSSELYN Administration Fentanyl 50 mcg 02/25/17 15:55 Sublimaze Injection - IVPUSH [id number] PRN PAIN-PACU ORDER X 4 DOSES ONLY Fluoxetine HCl 10 mg 02/24/17 22:00 02/28/17 22:13 Prozac - PO 10 mg HS JOSSELYN Administration Ondansetron HCl 4 mg 02/25/17 15:55 Zofran Injection IVPUSH Q6H PRN NAUSEA AND/OR VOMITING Oxycodone HCl 10 mg 02/28/17 20:19 02/28/17 22:14 Roxicodone - PO 03/01/17 20:18 10 mg Q4H PRN Administration PAIN LEVEL 6-10 Promethazine HCl 12.5 mg 02/25/17 15:55 Phenergan Injection - IVPB Q6H PRN NAUSEA-FOR RESCUE AFTER 15 MIN ASSESSMENT/PLAN: The patient is a 51 year old female with a history of breast CA s/p resection and a breast flap reconstruction and BEV flap revision admitted to the ICU for flap checks. S/P surgical reconstruction and BEV flap revision Patient was taken back to the OR yesterday for decreased perfusion to the right breast flap. She reports improvement in her symptoms. -Post-op management as per surgical team -Monitor MARGIE output -Keep incisions clean dry and open to air -Pain management: Continue Roxicodone, Fentanyl -Continue Ancef for now NEURO No Issues currently. -Awake and Oriented x3 CV No Issues currently. -Will continue to monitor RESP No Issues currently. -Will continue to monitor GI No Issues currently. Heme #Anemia. -HGB impoved to 10.2 on labs this morning. -Will continue to monitor. Renal -Stable BUN/creatinine -Will continue to monitor. ID Will continue antibiotic treatment with ancef for now. MSK No issues currently FEN/GI -Replete electrolytes PRN, will monitor PPX -On lovenox. DISPO: Continue ICU level of care. Visit type - Emergency Visit Emergency Visit: No - New Patient This patient is new to me today: No - Critical Care Critical Care patient: No
--- NOTE | 2017-03-01 12:27 | PN ---
Teaching Attending Note Name of Resident: Santos Ruiz ATTENDING PHYSICIAN STATEMENT I saw and evaluated the patient. I reviewed the resident's note and discussed the case with the resident. I agree with the resident's findings and plan as documented. SUBJECTIVE: Patient seen and examined in ICU. Awake and alert. Redness and itching of her right hand around the site of the IV / tape Feels better today. OOB to chair. Minimal dry cough. Pain seems adequately controlled. OBJECTIVE: Intake & Output 02/26/17 02/27/17 02/28/17 03/01/17 23:59 23:59 23:59 23:59 Intake Total 3130 2115 1750 500 Output Total 2047 640 960 220 Balance 1083 1475 790 280 Weight 163 lb 1.6 oz 166 lb 3.2 oz 163 lb 167 lb 4.8 oz Last Vital Signs Temp Pulse Resp BP Pulse Ox 98.8 F 82 18 128/72 96 03/01/17 10:00 03/01/17 10:00 03/01/17 10:00 03/01/17 10:00 02/28/17 20:49 Active Medications Acetaminophen (Ofirmev Injection -) 1,000 mg IVPB Q6H PRN PRN Reason: PAIN Al Hydroxide/Mg Hydroxide (Mylanta Oral Suspension -) 30 ml PO ONCE ONE Stop: 03/01/17 12:31 Aspirin (Asa -) 325 mg PO DAILY [facility] Last Admin: 03/01/17 09:55 Dose: 325 mg Chlorhexidine Gluconate (Hibiclens For Decolonization -) 1 applic TP HS [facility] Last Admin: 02/28/17 22:13 Dose: 1 applic Diazepam (Valium -) 5 mg PO Q8H PRN PRN Reason: WITHDRAWAL(CONT SUBST) Stop: 03/01/17 20:19 Last Admin: 02/28/17 22:14 Dose: 5 mg Diphenhydramine HCl (Benadryl Injection -) 25 mg IVPB Q4H PRN PRN Reason: FOR ITCHING Docusate Sodium (Colace -) 100 mg PO BID [facility] Last Admin: 03/01/17 09:55 Dose: 100 mg Enoxaparin Sodium (Lovenox -) 40 mg SQ DAILY [facility] Last Admin: 03/01/17 09:54 Dose: 40 mg Fentanyl (Sublimaze Injection -) 50 mcg IVPUSH [id number] PRN PRN Reason: PAIN-PACU ORDER X 4 DOSES ONLY Fluoxetine HCl (Prozac -) 10 mg PO HS JOSSELYN Last Admin: 02/28/17 22:13 Dose: 10 mg Ondansetron HCl (Zofran Injection) 4 mg IVPUSH Q6H PRN PRN Reason: NAUSEA AND/OR VOMITING Oxycodone HCl (Roxicodone -) 10 mg PO Q4H PRN PRN Reason: PAIN LEVEL 6-10 Stop: 03/01/17 20:18 Last Admin: 02/28/17 22:14 Dose: 10 mg Promethazine HCl (Phenergan Injection -) 12.5 mg IVPB Q6H PRN PRN Reason: NAUSEA-FOR RESCUE AFTER 15 MIN Gen: NAD Heart: RRR Lung: Post op changes, less swelling and erythema, decreased breath sounds at the bases Abd: soft, nontender Ext: erythema of the right hand : appears to be in the distribution of the tape Laboratory Results - last 24 hr 02/23/17 03/01/17 21:50 08:25 Sodium 137 Potassium 4.8 Chloride 104 Carbon Dioxide 28 Anion Gap 5 L BUN 6 L Creatinine 0.3 L Random Glucose 91 Calcium 8.0 L Blood Type A POSITIVE Antibody Screen Negative Crossmatch See Detail Crossmatch IS Only See Detail ASSESSMENT AND PLAN: Breast Ca s/p mastectomies/implants now s/p bilateral BEV reconstructions s/p Hematoma Evacuation Acute Blood Loss Anemia - OOB to chair / Ambulate - pain control - incentive spirometry - flap monitoring - monitor drain output - monitor H/H - Normal transfusion thresholds - PO as tolerated - DVT prophylaxis - Floor once OK with surgery Dr Okeefe
[2017-03-01] MEDS ORDERED: MAG HYDROX/AL HYDROX/SIMETH 30 ML UNIT-DOSE CUP PO ONE (12:30)
--- NOTE | 2017-03-01 18:33 | PN ---
Progress Note (short form) - Note Progress Note: Patient continues to improve. Afebrile. OOB and walking with assistance. Good Doppler Signal- Doppler removed. Minimal MARGIE drainage from both Right Breast drains- removed Superficial drain. Modest amount of bloody drainage after removal. Right breast remains firmer than left as expected. Hyperemia Lower Pole of Right breast resolving. Will evaluate tomorrow and consider discharge.
[2017-03-01] MEDS: diazePAM 5 MG TABLET PO PRN (19:42)
[2017-03-01 22:10] LABS: BASO % 0.6 % (0-2.0); EOS % 1.2 % (0-4.5); HEMATOCRIT 30.3 % (32.4-45.2); HEMOGLOBIN 10.3 GM/dL (10.7-15.3); LYMPH % 25.1 % (8-40); MCHC 33.9 g/dl (32.0-36.0); MEAN CELL VOLUME 88.8 fl (80-96); MEAN PLT VOLUME 7.9 fl (7.5-11.1); MONO % 7.1 % (3.8-10.2); PLATELET COUNT 318 K/MM3 (134-434); RBC 3.41 M/mm3 (3.60-5.2); RDW 14.4 % (11.6-15.6)
[2017-03-01] MEDS: FLUoxetine HCL 10 MG CAPSULE (FP) PO SCH ×2 (22:24→22:31)
[2017-03-01] MEDS: CHLORHEXIDINE GLUCONATE 4% CLEANSER FOR DECOLONIZATION TP SCH (22:24)
[2017-03-02] MEDS: oxyCODONE HCL 5 MG TABLET PO PRN ×2 (00:10→10:16)
[2017-03-02 06:17] LABS: HEMATOCRIT 27.4 % (32.4-45.2); HEMOGLOBIN 9.2 GM/dL (10.7-15.3); MCH 29.9 pg (25.7-33.7); MCHC 33.5 g/dl (32.0-36.0); MEAN CELL VOLUME 89.3 fl (80-96); MEAN PLT VOLUME 7.9 fl (7.5-11.1); PLATELET COUNT 289 K/MM3 (134-434); RBC 3.06 M/mm3 (3.60-5.2); RDW 14.1 % (11.6-15.6); WHITE BLOOD COUNT 10.9 K/mm3 (4.0-10.0)
[2017-03-02 06:37] LABS: INR 1.13 (0.82-1.09); PROTHROMBIN TIME (PATIENT) 12.8 SEC (9.98-11.88)
[2017-03-02 06:40] LABS: ACTIVATED PTT 25.9 SECONDS (26.9-34.4)
[2017-03-02 06:41] LABS: CHLORIDE 103 mmol/L (98-107); POTASSIUM 4.1 mmol/L (3.5-5.1); SODIUM 137 mmol/L (136-145)
[2017-03-02 06:52] LABS: ALK PHOS 76 U/L (45-117); ANION GAP 8 (8-16); BILIRUBIN,TOTAL 0.5 mg/dL (0.2-1.0); BLOOD UREA NITROGEN 13 mg/dL (7-18); CALCIUM 7.5 mg/dL (8.5-10.1); CO2 26 mmol/L (21-32); CREATININE 0.3 mg/dL (0.55-1.02); GLUCOSE,RANDOM 91 mg/dL (74-106); MAGNESIUM 1.9 mg/dL (1.8-2.4); SGOT/AST 44 U/L (15-37); SGPT/ALT 69 U/L (12-78); TOT PROT 4.9 g/dl (6.4-8.2)
--- NOTE | 2017-03-02 08:39 | PN ---
Physical Exam: SUBJECTIVE: Patient seen and examined The patient is a 51 year old female with a history of breast CA s/p resection and a breast flap reconstruction and BEV flap revision admitted to the ICU for flap checks. The patient reports some pain to her right sided following having one of her drains removed yesterday evening. Otherwise no acute events overnight. OBJECTIVE: Vital Signs Period Temp Pulse Resp BP Sys/Self Pulse Ox Last 24 Hr 98.8 F-99.9 F 82-95 16-20 103-128/52-82 96 GENERAL: The patient is awake, alert, and fully oriented, in no acute distress. HEAD: Normal with no signs of trauma. EYES: sclera anicteric, conjunctiva clear. No ptosis. ENT: nares patent, oropharynx clear without exudates, moist mucous membranes. NECK: Trachea midline, full range of motion, supple. LUNGS/CHEST: s/p breast reconstruction, long horizontal scar across lower abdomen. Well healing wounds with normal capillary refill. Breath sounds equal , clear to auscultation bilaterally, no wheezes, no crackles, no accessory muscle use. HEART: Regular rate and rhythm, S1, S2 without murmur, rub or gallop. ABDOMEN: Soft, nontender, nondistended, normoactive bowel sounds, no guarding, no rebound, no hepatosplenomegaly, no masses. EXTREMITIES: 2+ pulses, warm, well-perfused, no edema. NEUROLOGICAL: Normal speech, gait not observed. PSYCH: Normal mood, normal affect. SKIN: Warm, dry, normal turgor, no rashes or lesions noted Laboratory Results - last 24 hr 03/01/17 03/01/17 03/02/17 08:25 22:00 05:45 WBC 10.0 D 10.9 H RBC 3.41 L 3.06 L Hgb 10.3 L 9.2 L D Hct 30.3 L 27.4 L MCV 88.8 89.3 MCH 30.0 29.9 MCHC 33.9 33.5 RDW 14.4 14.1 Plt Count 318 D 289 MPV 7.9 7.9 Neutrophils % 66.0 Lymphocytes % 25.1 Monocytes % 7.1 Eosinophils % 1.2 Basophils % 0.6 PT with INR INR PTT (Actin FS) Sodium 137 Potassium 4.8 Chloride 104 Carbon Dioxide 28 Anion Gap 5 L BUN 6 L Creatinine 0.3 L Creat Clearance w eGFR Random Glucose 91 Calcium 8.0 L Phosphorus Magnesium Total Bilirubin AST ALT Alkaline Phosphatase Total Protein Albumin 03/02/17 03/02/17 05:45 05:45 WBC RBC Hgb Hct MCV MCH MCHC RDW Plt Count MPV Neutrophils % Lymphocytes % Monocytes % Eosinophils % Basophils % PT with INR 12.80 H INR 1.13 PTT (Actin FS) 25.9 L Sodium 137 Potassium 4.1 Chloride 103 Carbon Dioxide 26 Anion Gap 8 BUN 13 Creatinine 0.3 L Creat Clearance w eGFR > 60 Random Glucose 91 Calcium 7.5 L Phosphorus 4.0 Magnesium 1.9 Total Bilirubin 0.5 AST 44 H ALT 69 Alkaline Phosphatase 76 Total Protein 4.9 L Albumin 2.0 L Active Medications Generic Name Dose Route Start Last Admin Trade Name Freq PRN Reason Stop Dose Admin Acetaminophen 1,000 mg 02/24/17 09:23 Ofirmev Injection - IVPB Q6H PRN PAIN Aspirin 325 mg 02/24/17 10:00 03/01/17 09:55 Asa - PO 325 mg DAILY JOSSELYN Administration Chlorhexidine Gluconate 1 applic 02/24/17 22:00 03/01/17 22:24 Hibiclens For Decolonization - TP 1 applic HS JOSSELYN Administration Diphenhydramine HCl 25 mg 02/24/17 09:23 Benadryl Injection - IVPB Q4H PRN FOR ITCHING Docusate Sodium 100 mg 02/24/17 10:00 03/01/17 22:24 Colace - PO 100 mg BID JOSSELYN Administration Enoxaparin Sodium 40 mg 02/24/17 10:00 03/01/17 09:54 Lovenox - SQ 40 mg DAILY JOSSELYN Administration Fentanyl 50 mcg 02/25/17 15:55 Sublimaze Injection - IVPUSH [id number] PRN PAIN-PACU ORDER X 4 DOSES ONLY Fluoxetine HCl 10 mg 02/24/17 22:00 03/01/17 22:31 Prozac - PO Not Given HS [facility] Ondansetron HCl 4 mg 02/25/17 15:55 Zofran Injection IVPUSH Q6H PRN NAUSEA AND/OR VOMITING Oxycodone HCl 10 mg 03/01/17 23:56 03/02/17 00:10 Roxicodone - PO 10 mg Q4H PRN Administration PAIN LEVEL 6-10 Promethazine HCl 12.5 mg 02/25/17 15:55 Phenergan Injection - IVPB Q6H PRN NAUSEA-FOR RESCUE AFTER 15 MIN ASSESSMENT/PLAN: The patient is a 51 year old female with a history of breast CA s/p resection and a breast flap reconstruction and BEV flap revision admitted to the ICU for flap checks. S/P surgical reconstruction and BEV flap revision Patient was taken back to the OR yesterday for decreased perfusion to the right breast flap. She reports improvement in her symptoms. -Post-op management as per surgical team -Monitor MARGIE output -Keep incisions clean dry and open to air -Pain management: Continue Roxicodone, Fentanyl NEURO No Issues currently. -Awake and Oriented x3 CV No Issues currently. -Will continue to monitor RESP No Issues currently. -Will continue to monitor GI No Issues currently. Heme #Anemia. -HGB impoved. -Will continue to monitor. Renal -Stable BUN/creatinine -Will continue to monitor. ID No issues currently. MSK No issues currently FEN/GI -Replete electrolytes PRN, will monitor PPX -On lovenox. DISPO: Stable for floor or d/c pending clearance by surgery. Visit type - Emergency Visit Emergency Visit: No - New Patient This patient is new to me today: No - Critical Care Critical Care patient: No
[2017-03-02] MEDS: ASPIRIN 325 MG TABLET PO SCH (10:15)
[2017-03-02] MEDS: DOCUSATE SODIUM 100 MG CAPSULE (FP) PO SCH (10:15)
[2017-03-02] MEDS: ENOXAPARIN NA (PORCINE) 40 MG/0.4 ML DISP.SYRIN SQ SCH (10:16)
[2017-03-02] MEDS ORDERED: diazePAM 5 MG TABLET PO ONE (11:14)
[2017-03-02 11:46] VITALS: BP 108/64; PULSE 84; TEMP 99
--- NOTE | 2017-03-02 12:54 | PN ---
Progress Note (short form) - Note Progress Note: Overall appears much improved. VSS Labs are stable. Seen and cleared by surgery for D/C. Intake & Output 02/27/17 02/28/17 03/01/17 03/02/17 23:59 23:59 23:59 23:59 Intake Total 2115 1750 1200 300 Output Total 640 960 450 140 Balance 1475 790 750 160 Weight 166 lb 3.2 oz 163 lb 167 lb 4.8 oz 155 lb 11.2 oz Last Vital Signs Temp Pulse Resp BP Pulse Ox 99 F 84 18 108/64 96 03/02/17 10:00 03/02/17 10:00 03/02/17 10:00 03/02/17 10:00 03/01/17 20:07 Active Medications Acetaminophen (Ofirmev Injection -) 1,000 mg IVPB Q6H PRN PRN Reason: PAIN Aspirin (Asa -) 325 mg PO DAILY [facility] Last Admin: 03/02/17 10:15 Dose: 325 mg Chlorhexidine Gluconate (Hibiclens For Decolonization -) 1 applic TP [facility] Last Admin: 03/01/17 22:24 Dose: 1 applic Diphenhydramine HCl (Benadryl Injection -) 25 mg IVPB Q4H PRN PRN Reason: FOR ITCHING Docusate Sodium (Colace -) 100 mg PO BID [facility] Last Admin: 03/02/17 10:15 Dose: 100 mg Enoxaparin Sodium (Lovenox -) 40 mg SQ DAILY [facility] Last Admin: 03/02/17 10:16 Dose: 40 mg Fentanyl (Sublimaze Injection -) 50 mcg IVPUSH [id number] PRN PRN Reason: PAIN-PACU ORDER X 4 DOSES ONLY Fluoxetine HCl (Prozac -) 10 mg PO [facility] Last Admin: 03/01/17 22:31 Dose: Not Given Ondansetron HCl (Zofran Injection) 4 mg IVPUSH Q6H PRN PRN Reason: NAUSEA AND/OR VOMITING Oxycodone HCl (Roxicodone -) 10 mg PO Q4H PRN PRN Reason: PAIN LEVEL 6-10 Last Admin: 03/02/17 10:16 Dose: 10 mg Promethazine HCl (Phenergan Injection -) 12.5 mg IVPB Q6H PRN PRN Reason: NAUSEA-FOR RESCUE AFTER 15 MIN Gen: NAD Heart: RRR Lung: Post op changes, less swelling and erythema, decreased breath sounds at the bases Abd: soft, nontender Ext: Improving erythema of the right hand MARGIE drains intact Laboratory Results - last 24 hr 03/01/17 03/02/17 03/02/17 22:00 05:45 05:45 WBC 10.0 D 10.9 H RBC 3.41 L 3.06 L Hgb 10.3 L 9.2 L D Hct 30.3 L 27.4 L MCV 88.8 89.3 MCH 30.0 29.9 MCHC 33.9 33.5 RDW 14.4 14.1 Plt Count 318 D 289 MPV 7.9 7.9 Neutrophils % 66.0 Lymphocytes % 25.1 Monocytes % 7.1 Eosinophils % 1.2 Basophils % 0.6 PT with INR 12.80 H INR 1.13 PTT (Actin FS) 25.9 L Sodium Potassium Chloride Carbon Dioxide Anion Gap BUN Creatinine Creat Clearance w eGFR Random Glucose Calcium Phosphorus Magnesium Total Bilirubin AST ALT Alkaline Phosphatase Total Protein Albumin 03/02/17 05:45 WBC RBC Hgb Hct MCV MCH MCHC RDW Plt Count MPV Neutrophils % Lymphocytes % Monocytes % Eosinophils % Basophils % PT with INR INR PTT (Actin FS) Sodium 137 Potassium 4.1 Chloride 103 Carbon Dioxide 26 Anion Gap 8 BUN 13 Creatinine 0.3 L Creat Clearance w eGFR > 60 Random Glucose 91 Calcium 7.5 L Phosphorus 4.0 Magnesium 1.9 Total Bilirubin 0.5 AST 44 H ALT 69 Alkaline Phosphatase 76 Total Protein 4.9 L Albumin 2.0 L ASSESSMENT AND PLAN: Breast Ca s/p mastectomies/implants now s/p bilateral BEV reconstructions s/p Hematoma Evacuation Acute Blood Loss Anemia - Has been cleared for D/C home by surgery - Patient will follow with surgery in the office on Dr Okeefe
--- NOTE | 2017-03-02 18:19 | OP ---
DATE OF OPERATION: 02/23/2017 PREOPERATIVE DIAGNOSES: 1. Personal history of breast cancer. 2. Acquired absence of bilateral breasts. 3. Bilateral breast implant capsular contractures. 4. Incisional hernia, reducible. POSTOPERATIVE DIAGNOSES: 1. Personal history of breast cancer. 2. Acquired absence of bilateral breasts. 3. Bilateral breast implant capsular contractures. 4. Incisional hernia, reducible. PROCEDURE: 1. Bilateral breast implant removal with open periprosthetic capsulectomies. 2. Right breast reconstruction with deep inferior epigastric pipefitter microvascular free flap. 3. Left breast reconstruction with deep inferior epigastric pipefitter microvascular free flap. 4. Bilateral partial resection of third ribs. 5. Bilateral exploration of internal mammary vessels with extensive adventitiectomies. 6. Bilateral ultrasound-guided transverse abdominis plane blocks. 7. Intraoperative angiography of bilateral breast flaps using the SPY system. 8. Processing and interpretation of bilateral intraoperative angiography images. 9. Implantation of non-absorbable mesh for reinforcement of anterior abdominal wall. ATTENDING SURGEON: Barbie Alvarez MD CO-SURGEON: Pierce Bermudez MD ASSISTANTS: 1. Eddie Treadwell RPA 2. Jazmin Chaves RPA ANESTHESIA: General endotracheal. ESTIMATED BLOOD LOSS: Was 250 mL. SPECIMEN: 1. Right breast implant to Pathology. 2. Left breast implant to Pathology. 3. Right breast capsule to Pathology. 4. Left breast capsule to Pathology. DRAINS: 1. Number 19 round Kris drain x2 to abdomen. 2. Number 15 round Kris drain to right breast. 3. Number 19 round Kris drain to right breast. 4. Number 15 round Kris drain to left breast. 5. Number 19 round Kris drain to left breast. COMPLICATIONS: None. CONDITION: Stable to recovery room, extubated. INDICATIONS: The patient is a 51-year-old female with a history of breast cancer, who has previously undergone bilateral nipple-sparing mastectomies and implant-based reconstruction. The patient has developed bilateral capsular contracture and now presents for removal of her implants and tightened capsules and delayed autologous reconstruction. The risks, benefits, and alternatives of the reconstruction were discussed with the patient in detail, and all questions were answered. The risks include but are not limited to bleeding, infection, pain, need for revision or further surgery, partial or complete flap loss, damage to neighboring structures including nerves, arteries, veins, and tendons. The patient understands these risks and has elected to proceed with surgery. DESCRIPTION OF PROCEDURE: After proper identification and marking the patient in the preoperative holding area, the patient was transported to the operating room, placed supine on the table where noninvasive anesthesia monitors were applied. Intravenous access was established, general anesthesia was administered, and the patient was intubated without difficulty. SCD boots were applied to bilateral extremities. Intravenous antibiotics were then given. The patient's bilateral breasts as well as abdomen and flanks were then prepped and draped in the usual sterile fashion. After a timeout was performed, Dr. Bermudez and Michelle began working independently as co-surgeons with separate instrument setups. Attention was first turned towards the right breast where the inframammary fold scar was incised. This was carried down through the subcutaneous tissue with electrocautery, and the underlying breast capsule was identified. The breast capsule was incised, and the right breast implant was removed and passed off the field to Pathology. At this point, resection of the right breast capsule was performed, and the resected right breast capsule was passed off the field to Pathology. At this point, attention was turned towards the left breast where the exact same procedure was performed to remove the left breast implant and remove the left breast capsule, and, therefore, only 1 side will be dictated. Concurrently, harvesting of the lower abdominal tissue was performed. Skin hooks were placed at the 12 and 6 o'clock position of the umbilicus. The umbilicus was circumferentially incised with a number 15 blade. A periumbilical dissection was performed with Metzenbaum scissors with care taken to leave adequate periumbilical fat. The superior and inferior limbs of the lower abdominal flap were then incised. The superior limb was carried down through the full thickness of the subcutaneous tissue with care taken to bevel slightly outwards. The superior abdominal skin flap was then raised up to the costal margin bilaterally and the xiphoid process in the midline. The inferior incision was carried down through the full thickness of the subcutaneous tissue. Bilateral superficial inferior epigastric veins were identified. A more proximal dissection was performed along these until adequate length and caliber were achieved. The remainder of the subcutaneous tissue was then dissected down to the anterior abdominal wall. At this point, the lower abdominal flap was bisected in the midline with a number 10 blade, and this was carried down through the full thickness of the subcutaneous tissue with electrocautery until the linea alba was reached. At this point, the lower abdominal tissue on the left side was raised from a ouikia-vg-jyxuybo direction. There was noted to be a large medial row periumbilical pipefitter with a strong palpable pulse, and the decision was made to base the flap off of this single dominant pipefitter. The pipefitter was then circumferentially dissected as it exited through the fascia. The fascia was then opened superiorly and inferiorly. At this point, a retrograde pipefitter dissection was performed through the full thickness of the rectus abdominis muscle fiber. Care was taken to individually identify, circumferentially dissect, ligate and divide muscular side branches. The pipefitter was dissected down to the takeoff from the inferior epigastric pedicle. The superior continuation of the pedicle was ligated and divided. At this point, a more proximal pedicle dissection was performed until adequate length and caliber were achieved. The remainder of the left BEV flap was raised off of the anterior abdominal wall. A skin signal was then achieved at the superior aspect of the flap, and this was marked with a 5-0 Prolene suture. A skin paddle was then designed, and the remainder of the flap was de-epithelialized and noted to be bleeding well from all aspects. The flap was temporarily stapled in place, and attention was turned towards the right side where the flap was raised from both psjpruj-cw-mvhayz and nimzzf-lz-hwclwmz directions. There were noted to be 2 small medial row perforators and multiple small lateral row perforators. The decision was made to base the flap on the small medial row perforators. Therefore, the fascia was opened superiorly and inferiorly around the medial row perforators. A small intervening piece of muscle was included with the medial row perforators. The perforators were dissected in a retrograde fashion through the rectus abdominis muscle fibers. The pedicle was then encountered, and the superior continuation of the pedicle was ligated and divided. A more proximal pedicle dissection was performed until adequate length and caliber were achieved. At this point, the remainder of the lower abdominal tissue was raised off the anterior abdominal wall. A skin paddle was then achieved on the right abdominal flap and a skin paddle designed and the remainder of the flap de-epithelialized. At this point, attention was turned towards the right breast pocket where self-retaining retractors were placed. The interspace between the second and third rib was identified. The periosteum and perichondrium on the superior surface of the third rib was incised. A circumferential subperiosteal dissection was performed. Partial resection of the right third rib at the costochondral junction was performed. The periosteum on the deep surface was then incised. The internal mammary vessels on the deep surface were then encountered. At this point, microvascular instruments and techniques were used to explore the internal mammary vessels. Extensive adventitiectomies were performed on both the artery and the accompanying venae comitantes. Once the vessels were adequately repaired, attention was turned towards the left side where the exact same procedure was performed in order to partially resect the left third rib and explore the internal mammary vessels. Once this was completed, attention was turned towards the microvascular transfers. The left abdominal flap was ligated and divided at the most proximal extent of the dissection and brought up to the right breast pocket where it was temporarily stapled in place. A 3.0-mm Synovis surveyor instrument assistant was used to perform the first venous anastomosis between the larger flap vein and the antegrade stump of the internal mammary vein. Next, a primary handsewn anastomosis was performed between the internal mammary artery and the inferior epigastric artery using 8-0 nylon suture in a simple interrupted fashion. Release of all clamps revealed good flow across this anastomosis and good egress of venous blood from the remaining flap vein. A second venous anastomosis was performed between the remaining flap vein and the retrograde stump of the internal mammary vein using a 2.0-mm Synovis surveyor instrument assistant. Release of all clamps revealed good flow across this anastomosis as well. At this point, the right breast flap was placed into the right breast pocket. Care was taken to ensure a good lie of the pedicle without twisting or kinking. The flap was inset to the chest wall using a 2-0 Vicryl suture in a simple interrupted fashion along the medial, superior, lateral, and inferior aspects. Number 15 and 19 round Kris drains were placed into the right breast pocket, and the right breast mastectomy skin flap was closed to the skin paddle using a 3-0 PDS in a buried deep dermal fashion followed by 3-0 Monocryl in a running subcuticular fashion. A strong Doppler signal was encountered at the conclusion of the closure. At this point, the attention was turned toward the microvascular transfer of the right abdominal flap. This was ligated and divided at the most proximal extent of the pedicle dissection and brought up to the left breast pocket where it was temporarily stapled in place. The microvascular anastomoses were then performed. A 2.5-mm Synovis surveyor instrument assistant was used to perform the first venous anastomosis between the antegrade stump of the internal mammary vein and the larger of the 2 flap veins. Next, a primary handsewn anastomosis was performed between the internal mammary artery and the inferior epigastric artery using an 8-0 nylon suture in a simple interrupted fashion. Release of all clamps revealed good flow across this anastomosis with good egress of venous blood from the remaining flap vein. Next, a 2.0-mm Synovis surveyor instrument assistant was used to anastomose the smaller of the 2 flap veins to the retrograde stump of the internal mammary vein, and release of all clamps revealed good flow across this anastomosis as well. Next, the flap was carefully placed into the left breast pocket. Care was taken to ensure a good lie of the pedicle without twisting or kinking. Number 15 and 19 round Kris drains were placed into the left breast pocket, and the left breast was closed in a similar fashion as to the right side, and, therefore, only 1 side will be dictated. Concurrent closure of the abdomen was performed. The fascia on the left side was reapproximated primarily using a 0 Ethibond suture in an interrupted, buried jndazc-ry-lzzqo fashion. The fascia on the right side was reapproximated primarily as well in a similar fashion but was noted to be fairly tight, and, therefore, the decision was made to reinforce the anterior abdominal wall with a piece of polypropylene mesh. This was opened and bathed in normal saline solution and then was secured to the anterior abdominal wall as an onlay and secured using a 2-0 Vicryl suture in a simple running fashion. Once the mesh was in place, the ultrasound system was brought into the field. Bilateral transverse abdominis plane blocks were then performed using a local anesthetic solution consisting of 20 mL of Exparel mixed with 30 mL of 0.25% Marcaine and 80 mL of normal saline. A total of 30 mL of this local anesthetic mixture was injected into each transverse abdominis plane. At this point, the superior abdominal skin flap was advanced and closed in layers over 2 number 19 round Kris drains which were brought out through separate stab incisions laterally and secured to the skin with 3-0 nylon sutures. The abdominal skin closure was performed in layers using a 2-0 Vicryl suture in an interrupted buried fashion in Raina's layer followed by a 3-0 PDS in a buried deep dermal fashion and finally a 3-0 Monocryl in a running subcuticular fashion. Prineo tape was applied to the lower abdominal closure line. The umbilicus was transposed and inset using a 3-0 PDS in a buried deep dermal fashion followed by a 5-0 nylon in a simple interrupted fashion. Once all incisions were closed, the patient was slowly awakened and extubated without incident and transported to recovery room in stable condition. BARBIE ALVAREZ M.D. [id number]
--- NOTE | 2017-03-03 13:24 | PATH ---
Surgical Pathology Report Patient Name: SUKI CABRERA [facility]. Rec. #: [id number] /Age/Gender: 1965 (Age: 51) / F Account: [id number] Location: ICU [facility] Taken: 02/26/2017 Received: 02/26/2017 Reported: 03/03/2017 Physicians: Pierce Bermudez M.D. Specimen(s) Received A: DEBRIDED TISSUE RIGHT BEV FLAP B: SEGMENT OF SUPERFICIAL INFERIOR GASTRIC VEIN Clinical History Venous congestion right BEV flap Final Diagnosis A. SOFT TISSUE, RIGHT BEV FLAP, DEBRIDEMENT: BENIGN ADIPOSE TISSUE WITH AREAS OF HEMORRHAGE. B. SUPERFICIAL INFERIOR GASTRIC VEIN, PARTIAL EXCISION: PORTION OF UNREMARKABLE BLOOD VESSEL. Electronically Signed Julio Griffin M.D. Gross Description A. Received in formalin labeled "debrided tissue right," is a 15.0 x 10.0 x 2.5 cm aggregate of multiple proctor-brown, irregular, unoriented portion of hemorrhagic soft tissue. Plastic Card Grader Cardroom sections are submitted in one cassette. B. Received in formalin labeled "segment of superficial inferior gastric vein," is a 0.3 x 0.1 x 0.1 cm proctor soft tissue fragment with an attached staple. The staple is removed and the specimen is entirely submitted in one cassette. 02/26/201702/26/2017
--- NOTE | 2017-03-07 16:23 | OP ---
DATE OF OPERATION: 02/24/2017 PREOPERATIVE DIAGNOSES: 1. Personal history of breast cancer. 2. Acquired absence of bilateral breasts. 3. A venous congestion of the right deep inferior epigastric hot stick worker and microvascular free flap. POSTOPERATIVE DIAGNOSES: 1. Personal history of breast cancer. 2. Acquired absence of bilateral breasts. 3. A venous congestion of the right deep inferior epigastric hot stick worker and microvascular free flap. PROCEDURE: 1. Exploration of right breast reconstruction with evacuation of hematoma. 2. Revision of right breast flap with flap rotation and re-insetting. 3. Use of microscopic assistance and microvascular techniques. ATTENDING SURGEON: Rigoberto Lima MD CO-SURGEON: Pierce Maldonado MD BATCH ANALYST: HARJEET Olivares. ANESTHESIA: General endotracheal. ESTIMATED BLOOD LOSS: 300 mL of hematoma evacuated. DRAINS: No. 10 round Kris drain x1 and No. 15 round Kris drain x1 to right breast. FINDINGS: Kinking of inferior epigastric pedicle of right deep inferior epigastric hot stick worker and microvascular free flap. COMPLICATIONS: None. CONDITION: Stable to recovery room, extubated. INDICATIONS: The patient is a 51-year-old female who underwent a bilateral breast reconstruction with deep inferior epigastric hot stick worker flaps on February 23, 2017. On postoperative day one acute venous congestion of the right flap was noted. The patient is therefore brought emergently to the operating room in order to correct the congestion. The risks, benefits, and alternatives were discussed with the patient and all questions were answered. The risks included but are not limited to bleeding, infection, pain, need for revision of further surgery, partial complete flap loss, and damage to the surrounding structures including nerves, arteries, veins and tendons. The patient understands these risks and has elected to proceed with surgery. DESCRIPTION OF PROCEDURE: After proper identification and marking the patient, the patient was transferred to the operating room and placed supine on the table where all noninvasive anesthesia monitors were applied. General anesthesia was administered and the patient was intubated without difficulty. The patients right breast was then prepped and draped sterilely. The previous suture line along the inframammary fold around the congested skin paddle was then completely released. Approximately 300 mL of venous blood hematoma was evacuated. The deep and fair epigastric hot stick worker flap was then completely released from the chest wall and was externalized on the right chest wall. Examination of the pedicle revealed kinking just before the hot stick worker entered the flap. This was corrected using microvascular instruments and techniques and an immediate improvement of the skin paddle was noted. Examination of the skin paddle at this point revealed normal capillary refill as well as bright red bleeding from the dermis. The right breast pocket was then copiously irrigated with normal saline and care was taken to ensure there was very good hemostasis and that all hematoma had been evacuated. Examination of the pedicle as it entered into the chest wall revealed a strong palpable pulse at the artery and a normal strip test of the veins. Therefore, at this point attention was turned towards re-insetting of the flap. The flap was rotated in a clockwise direction in order to take any redundancy out of the pedicle. Once a normal live pedicle without twisting or kinking was achieved, the flap was re-inset to the chest wall using 2-0 Vicryl in a simple interrupted fashion medially, inferiorly, laterally and superiorly. A No. 10 round Kris drain and a No. 15 Blade drain were then placed into the right breast pocket and brought out through the previous stab incisions laterally and secured to the skin with a 3-0 nylon sutures. The skin paddle was then re-inset to the mastectomy skin flaps using a 3-0 PDS in a buried deep dermal fashion followed by 4-0 nylon in a simple interrupted fashion. The patient at this point was slowly awakened and was extubated without incident and transported to the recovery room in stable condition. Doppler examination upon entering recovery revealed a strong biphasic signal with normal capillary refill. PIERCE MALDONADO M.D. /[id number]
--- NOTE | 2017-03-07 19:45 | OP ---
DATE OF OPERATION: 02/25/2017 PREOPERATIVE DIAGNOSES: 1. Personal history of breast cancer. 2. Acquired absence of bilateral breasts. 3. Venous congestion of right deep inferior epigastric information security systems instructor microvascular free flap. POSTOPERATIVE DIAGNOSES: 1. Personal history of breast cancer. 2. Acquired absence of bilateral breasts. 3. Venous congestion of right deep inferior epigastric information security systems instructor microvascular free flap. PROCEDURES: 1. Exploration of right breast flap for venous congestion. 2. Revision of right breast reconstruction with debridement of deep inferior epigastric information security systems instructor flap. 3. Use of microscopic assistance and microvascular techniques. 4. Vein graft from superior inferior epigastric vein to retrograde internal mammary vein in order to augment venous outflow. ATTENDING SURGEON: Rigoberto Lima MD CO-SURGEON: Pierce Bermudez MD WASHING MACHINE LOADER AND PULLER: HARJEET Olivares ANESTHESIA: General endotracheal. ESTIMATED BLOOD LOSS: 100 mL. SPECIMEN: None. DRAINS: Number 10 round Kris drain and number 15 round Kris drain to right breast. FINDINGS: Thrombosis of one of the venae comitantes of the inferior epigastric pedicle. COMPLICATIONS: None. CONDITION: Stable to recovery room, extubated. INDICATIONS: The patient is a 51-year-old female who underwent bilateral breast reconstruction with deep inferior epigastric information security systems instructor flaps on February 23, 2017. The patient was brought to the operating room on postoperative day number 1 for venous congestion of the right side, and this was successfully treated. Overnight, the patient has again developed venous congestion of the right deep inferior epigastric information security systems instructor flap and is therefore brought emergently to the operating room again for evaluation and treatment. The risks, benefits, and alternatives were discussed with the patient and all questions were answered. The risks include but are not limited to bleeding, infection, pain, partial or complete flap loss, damage to neighboring structures including nerves, arteries, veins, and tendons. The patient understands these risks and has elected to proceed with surgery. PROCEDURE: After proper identification and marking the patient in the preoperative holding area, the patient was transported to the operating room and placed supine on the table, and noninvasive anesthesia monitors were applied. Intravenous access was already established, therefore general anesthesia was administered, and the patient was intubated without difficulty. SCD boots were applied to bilateral lower extremities. Intravenous antibiotics were up-to-date. The patient's right breast was then prepped and draped sterilely. After a timeout was performed, the previous suture line along the skin paddle on the right breast inframammary fold was released. The deep inferior epigastric information security systems instructor flap was then completely released from the chest wall and was delivered from the right breast pocket and secured onto the right chest wall. Examination of the pedicle revealed thrombosis of one of the venae comitantes, which was anastomosed to the retrograde internal mammary vein. The other vena comitans, which was noted to be larger, which was anastomosed to a 3.0-mm Synovis batch operator to the antegrade internal mammary vein, was noted to be of normal color with a normal strip test. Examination of the artery on the pedicle revealed a strong palpable pulse, no obvious kinking of the pedicle was noted as it entered the flap. At this point, debridement of the skin paddle of the deep inferior epigastric information security systems instructor flap was performed. There was noted to be bright red bleeding from the fat of the flap. Given the venous congestion and increase in the size of the flap, a debridement of the flap size was performed along the periphery in order to make adequate space in the right breast pocket for the flap. Once this was completed, attention was turned towards augmenting the venous outflow. The superficial inferior epigastric vein was identified and the vascular clip on this was released. A thrombectomy of the superficial inferior epigastric vein was then performed using a number 3 Rahel catheter. There was noted to be good drainage of venous blood from the superficial vein. The thrombosed venae comitantes of the inferior epigastric pedicle was then carefully dissected away from the flap artery and remaining vena comitans. This dissection was performed along the entire length of the thrombosed vein. The thrombosed vein was then ligated and divided as distally into the pedicle as possible. The vein was then divided just proximal to the Synovis batch operator along the retrograde internal mammary vein. There was noted to be thrombosis of the retrograde internal mammary vein. A thrombectomy of this retrograde internal mammary vein was then performed using microvascular forceps. Once the thrombus had been removed, the retrograde vein was flushed with heparinized saline and was noted to flush normally. Therefore, a clamp was placed more proximally along this internal mammary vein. At this point, an extensive thrombectomy was performed along the vena comitans of the inferior epigastric system. Care was taken to ensure all clot was removed. A combination of a Rahel catheter as well as microvascular forceps and heparinized saline was used to completely remove all thrombus from the vein. Once this was completed, attention was turned towards using this as a vein graft. Proper orientation of the vein was ensured and a 2.5-mm Synovis batch operator was used to anastomose this vein to the retrograde internal mammary vein. Release of all clamps revealed good backflow across this anastomosis and the vein was noted to flush normally with heparinized saline. At this point, the vein graft was anastomosed to the superficial inferior epigastric vein using a 2.5-mm Synovis batch operator. Release of all clamps revealed good flow across this anastomosis with a positive strip test. At this point, attention was turned towards re-insetting of the flap. The flap was carefully positioned on the chest wall. Examination of the inferior epigastric pedicle as well as the superficial inferior epigastric vein and vein graft course were inspected and noted to be without kinking or twisting. Therefore, the flap was inset to the chest wall using a 2-0 Vicryl suture in a simple interrupted fashion. The [employer] implantable Doppler system was brought into the field and a window was made around the inferior epigastric artery distal to the anastomosis, and the [employer] implantable Doppler was placed around this and hooked up to the external Doppler box ad noted to have a strong biphasic signal. Therefore, the right breast was closed along the inframammary fold using a 3-0 PDS in a buried deep dermal fashion, followed by a 3-0 Monocryl a running subcuticular fashion. The previous number 10 and number 15 round Kris drains were brought out through the same stab incisions laterally and were secured with 3-0 nylon sutures. At the conclusion of the case, a strong biphasic implantable Doppler signal was achieved, and therefore, the patient at this point was slowly awakened and extubated without incident and was transported to recovery room in stable condition. RIGOBERTO LIMA M.D. [id number]
== END 2017-03-02 12:00 | disposition home or self-care (01) | DRG 940 ==
LOC: JSAMEDAYSX 02-23 06:18 → EDSTATUS 02-23 08:00 → JICU 02-23 21:29
PROVIDERS: ADMIT Plastic Surgery; ATTEND Plastic Surgery
PROC: 0HPT0JZ Removal of Synthetic Substitute from Right Breast, Open Approach (ICD-10-PCS; 2017-02-23)
PROC: 0HRT077 Replacement of Right Breast using Deep Inferior Epigastric Artery Perforator Flap, Open Approach (ICD-10-PCS; 2017-02-23)
PROC: 0HRU076 Replacement of Left Breast using Transverse Rectus Abdominis Myocutaneous Flap, Open Approach (ICD-10-PCS; 2017-02-23)
PROC: 0PB10ZZ Excision of 1 to 2 Ribs, Open Approach (ICD-10-PCS; 2017-02-23)
PROC: 4A1GXSH Monitoring of Skin and Breast Vascular Perfusion using Indocyanine Green Dye, External Approach (ICD-10-PCS; 2017-02-23)
PROC: 0HPU0JZ Removal of Synthetic Substitute from Left Breast, Open Approach (ICD-10-PCS; principal; 2017-02-23 08:00)
PROC: 05S Upper Veins, Reposition (ICD-10-PCS; 2017-02-24)
PROC: 0HCT0ZZ Extirpation of Matter from Right Breast, Open Approach (ICD-10-PCS; 2017-02-24)
PROC: 0HBTXZZ (ICD-10-PCS; 2017-02-25)
PROC: 05CY0ZZ Extirpation of Matter from Upper Vein, Open Approach (ICD-10-PCS; 2017-02-25)
DX: Z90.13 Acquired absence of bilateral breasts and nipples (principal); L76.32 Postprocedural hematoma of skin and subcutaneous tissue following other procedure; D62 Acute posthemorrhagic anemia; I82.890 Acute embolism and thrombosis of other specified veins; M95.4 Acquired deformity of chest and rib; Y83.8 Other surgical procedures as the cause of abnormal reaction of the patient, or of later complication, without mention of misadventure at the time of the procedure; C50.919 Malignant neoplasm of unspecified site of unspecified female breast; I87.8 Other specified disorders of veins
CPT/HCPCS: 36415; 36430; 80048; 80053; 83735; 84100; 85025; 85027; 85610; 85730; 86850; 86900; 86901; 86922; 88300-TC; 88304-TC; 93005; 93010; 94010; 94760; 97116-GP; 97161-GP; J1644; J2997; P9038; P9058

== ENCOUNTER 2017-05-17 06:10 | Day surgery (SDC) | payer BC ==
[2017-05-14 12:38] VITALS: BMI 27.8
[2017-05-17] MEDS ORDERED: MIDAZOLAM HCL 2 MG/2 ML SINGLE DOSE VIAL ONE (07:25)
[2017-05-17] MEDS ORDERED: fentaNYL CITRATE 250 MCG/5 ML VIAL ONE (07:25)
[2017-05-17] MEDS ORDERED: PROPOFOL 20 ML ONE ×2 (07:25)
[2017-05-17] MEDS ORDERED: KETOROLAC TROMETHAMINE 30 MG/1 ML VIAL ONE (07:27)
[2017-05-17] MEDS ORDERED: DEXAMETHASONE SOD PHOSPHATE 4 MG/1 ML VIAL ONE (07:27)
[2017-05-17] MEDS ORDERED: LIDOCAINE HCL/PF 2% SDV 5ML VIAL ONE (07:27)
[2017-05-17] MEDS ORDERED: ONDANSETRON 4 MG/2 ML VIAL ONE (07:27)
[2017-05-17] MEDS ORDERED: ROCURONIUM BROMIDE 50 MG/5 ML VIAL ONE (07:28)
[2017-05-17] MEDS ORDERED: SUCCINYLCHOLINE CHLORIDE 200 MG/10 ML VIAL ONE (07:28)
[2017-05-17] MEDS ORDERED: BACITRACIN 50,000 UNITS VIAL TP ONE (08:50)
[2017-05-17] MEDS ORDERED: GLYCOPYRROLATE 0.2 MG/1 ML VIAL ONE (10:03)
[2017-05-17] MEDS ORDERED: NEOSTIGMINE METHYLSULFATE 0.5 MG/ML - 10 ML MDV ONE (10:03)
--- NOTE | 2017-05-17 11:01 | OP ---
Operative Note - Note: Operative Date: 05/17/17 Pre-Operative Diagnosis: Large Open Draining Wound Right Breast After Post- Mastectomy BEV Flap Reconstruction. Operation: Revision of Right Breast BEV-Flap Reconstruction with Partial Flap Debridement, Intra-Operative Angiography, Application of VAC Device Post-Operative Diagnosis: Same as Pre-op Surgeon: Pierce Bermudez Anesthesia: General Specimens Removed: Necrotic Tissue with Areas of Fat-Necrosis Right Breast Drains & Tubes with Location: Kris Drain 15Fr Operative Report Dictated: Yes
[2017-05-17] MEDS ORDERED: oxyCODONE HCL 5 MG TABLET PO PRN (11:09)
[2017-05-17] MEDS ORDERED: ACETAMINOPHEN 325 MG TABLET (FP) ONE ×2 (12:29→18:53)
--- NOTE | 2017-05-17 12:40 | OP ---
DATE OF OPERATION: 05/17/2017 PREOPERATIVE DIAGNOSIS: Large open drainage wound, right breast after post mastectomy deep inferior epigastric head of english flap reconstruction. POSTOPERATIVE DIAGNOSIS: Large open drainage wound, right breast after post mastectomy deep inferior epigastric head of english flap reconstruction. PROCEDURE PERFORMED: Revision of breast deep inferior epigastric head of english flap reconstruction with partial flap debridement, intraoperative angiography, and application of VAC device. SURGEON: Pierce Maldonado MD ANESTHESIA: General via endotracheal tube. BRIEF HISTORY: The patient is a 51-year-old female who is status post bilateral breast reconstruction with free tissue transfer using a BEV flap. The procedure was complicated by postoperative anesthesia reaction during which the patient injured her right side in the recovery room necessitating return to the operating room the following day. The patient required further exploration and 3rd time after which the flap remained viable with good Doppler signals. Postoperatively, the patient did well and over the last month developing a small, open, draining wound in the inframammary fold on the right breast, which despite conservative management continued to expand, and it became obvious that partial or total flap necrosis was present. The patient now presents with a large inframammary draining wound on the right breast with necrotic tissue beneath for exploration and debridement of the flap. DESCRIPTION OF PROCEDURE: The patient was on the operating room table in supine position, and general anesthesia was administered by the anesthesiologist. The area of the chest was prepped and draped in the usual sterile fashion. The inframammary incision was reopened with a number 15 scalpel blade and carried down sharply through subcutaneous tissues sharply with electrocautery. Hemostasis was achieved. The plane superior to the flap was only partially healed and easily reopened. Necrotic portions of the superficial flap were identified and debrided. Dissection continued around the superficial portion of the flap, and multiple areas of fat necrosis were identified and excised. As dissection continued down into the distal flap, good arterial bleeding was noted both distally and inferiorly. The SPY device was brought over the operative field, and an injection was performed. The flap vascularity appeared deficient only in portions of the superior and superomedial flap, and further debridement was performed in this area. Good bleeding surface was appreciated, and it was decided not to debride the flap any further at this time. Hemostasis was achieved, and a 15-[place] Kris drain was inserted through separate stab incision and directed laterally and superiorly over these margins of the flap. The inframammary fold was reapproximated in layered fashion to deep tissue with No. 3-0 and 4-0 Biosyn suture in interrupted buried fashion and the skin with No. 4-0 nylon suture. Several large 2-0 nylon retention-type sutures were placed to close space beneath. The wound left open was approximately 4 cm x 8 cm and approximately 4 cm deep, and it was elected to use a vacuum-assisted closure device, which was placed. This was connected to suction at 100 mmHg to start, and the patient was taken from the operating room to the recovery room in satisfactory condition after being awoken from anesthesia. She tolerated the procedure well. PIERCE MALDONADO M.D. JOSÉ [id number]
[2017-05-17] MEDS ORDERED: ACETAMINOPHEN 325 MG TABLET (FP) PO ONE (12:42)
[2017-05-17] MEDS ORDERED: ONDANSETRON 4 MG/2 ML VIAL IVPUSH PRN (12:42)
[2017-05-17] MEDS ORDERED: LACTATED RINGERS SOLUTION 1,000 ML IV SCH (12:45)
[2017-05-17 14:04] VITALS: TEMP 98.5
[2017-05-17 14:21] VITALS: BP 113/69; PULSE 84
--- NOTE | 2017-05-20 14:44 | PATH ---
Surgical Pathology Report Patient Name: SUKI CABRERA [facility]. Rec. #: [id number] /Age/Gender: 1965 (Age: 51) / F Account: [id number] Location: [facility] Taken: 05/17/2017 Received: 05/17/2017 Reported: 05/20/2017 Physicians: iPerce Bermudez M.D. Specimen(s) Received DEBRIDEMENT TISSUE RIGHT BREAST Clinical History None given Final Diagnosis RIGHT BREAST, DEBRIDEMENT: FIBROFATTY TISSUE WITH GANGRENOUS NECROSIS AND FAT NECROSIS. Comment: Recommend correlation with clinical findings and follow up as clinically indicated. Electronically Signed Julio Griffin M.D. Gross Description Received in formalin labeled "debrided tissue right breast," is a 15.0 x 13.5 x 2.5 cm aggregate of multiple unoriented portions of necrotic fibroadipose tissue. No masses are identified. It Applications Manager sections are submitted in one cassette. /05/18/2017 [place]udi/05/18/2017
== END 2017-05-18 00:15 | disposition home or self-care (01) ==
LOC: FASU 06:10
PROVIDERS: ATTEND Plastic Surgery
PROC: 0H0T0ZZ Alteration of Right Breast, Open Approach (ICD-10-PCS; principal; 2017-05-17 08:25)
DX: S21.001A Unspecified open wound of right breast, initial encounter (principal); T85.898A Other specified complication of other internal prosthetic devices, implants and grafts, initial encounter; N64.1 Fat necrosis of breast; Y83.8 Other surgical procedures as the cause of abnormal reaction of the patient, or of later complication, without mention of misadventure at the time of the procedure; Y82.8 Other medical devices associated with adverse incidents; Y92.9 Unspecified place or not applicable
CPT/HCPCS: 88304-TC

== ENCOUNTER 2017-12-09 08:30 | Day surgery (SDC) | payer BC ==
[2017-12-08 15:56] VITALS: BMI 28.8
[2017-12-09] MEDS ORDERED: ceFAZolin SODIUM 1 GM VIAL ONE (10:35)
[2017-12-09] MEDS ORDERED: LIDOCAINE HCL/PF 2% SDV 5ML VIAL ONE (10:35)
[2017-12-09] MEDS ORDERED: DEXAMETHASONE SOD PHOSPHATE 4 MG/1 ML VIAL ONE (10:35)
[2017-12-09] MEDS ORDERED: MIDAZOLAM HCL 2 MG/2 ML SINGLE DOSE VIAL ONE (10:36)
[2017-12-09] MEDS ORDERED: PROPOFOL 20 ML ONE ×2 (10:36→11:27)
[2017-12-09] MEDS ORDERED: ONDANSETRON 4 MG/2 ML VIAL IVPUSH PRN (10:44)
[2017-12-09] MEDS ORDERED: oxyCODONE HCL 5 MG TABLET PO PRN (10:44)
[2017-12-09] MEDS ORDERED: PROMETHAZINE HCL 25 MG/1 ML VIAL IVPB PRN (10:44)
[2017-12-09] MEDS ORDERED: LACTATED RINGERS SOLUTION 1,000 ML IV SCH (10:45)
[2017-12-09] MEDS ORDERED: ACETAMINOPHEN 1000 MG/100 ML VIAL (NON FORMULARY) IVPB ONE (10:45)
[2017-12-09] MEDS ORDERED: ceFAZolin SODIUM 1 GM VIAL IVPB ONE (11:10)
[2017-12-09] MEDS ORDERED: KETAMINE HCL 200 MG/20 ML VIAL ONE (11:12)
[2017-12-09] MEDS ORDERED: ePHEDrine SULFATE 50 MG/1 ML AMPULE ONE (11:58)
--- NOTE | 2017-12-09 13:16 | OP ---
Operative Note - Note: Operative Date: 12/09/17 Pre-Operative Diagnosis: Contracted Lower Breast Pole after BEV flap reconstruction Operation: Revision of Right Breast Reconstruction, Debridement of Lower breast with advancement flap closure. Post-Operative Diagnosis: Same as Pre-op Surgeon: Pierce Bermudez Anesthesia: General Operative Report Dictated: Yes
[2017-12-09] MEDS ORDERED: ACETAMINOPHEN INJECTION 100 ML IVPB ONE (13:19)
--- NOTE | 2017-12-09 13:48 | OP ---
DATE OF OPERATION: 12/09/2017 PREOPERATIVE DIAGNOSIS: Contracted right lower breast pole after a deep flap reconstruction. POSTOPERATIVE DIAGNOSIS: Contracted right lower breast pole after a deep flap reconstruction. PROCEDURE PERFORMED: Revision of right breast reconstruction with debridement of lower portion of deep flap and scar tissue and advancement flap closures. SURGEON: Pierce Maldonado MD ANESTHESIA: General. BRIEF HISTORY: The patient is status post bilateral nipple-sparing mastectomies after having had a breast reduction previous to that. She underwent deep flap reconstructions bilateral with partial failure of the right breast flap. She developed scar tissue in the lower pole of the breast, which contracted significantly with scar undermining the central portion of the breast. She now presents for debridement, revision, and closure of this area. DESCRIPTION OF PROCEDURE: The patient was on the operating table in the supine position, and general anesthesia was administered by the anesthesiologist. The area of the chest was prepped and draped in the usual sterile fashion. The scar tissue was marked with a marking pen for excision; however, portions of this scarred area were kept if needed for closure. Areas of necrotic tissue and fat necrosis beneath were excised leaving a central defect slightly larger than anticipated. Local tissues were mobilized laterally and medially to fill this defect as best as possible. The lateral and medial breast tissue was then undermined and advanced centrally. Hemostasis was achieved with the electrocautery, and wounds were then closed in a layered fashion after mobilizing tissue to fill the central defect. Deep tissues were then closed with No. 3-0 Biosyn suture in interrupted buried fashion, and skin was closed with multiple 4-0 nylon sutures in simple interrupted fashion. Dressing was then applied consisting of Xeroform gauze, Kerlix gauze, and secured with a surgical bra. The patient was then awoken from anesthesia without any difficulty and taken from the operating room to the recovery room in satisfactory condition having tolerated the procedure well. PIERCE MALDONADO M.D. JOSÉ [id number]
[2017-12-09] MEDS ORDERED: oxyCODONE HCL 5 MG TABLET ONE (13:49)
[2017-12-09 14:13] VITALS: PULSE 73
[2017-12-09 15:43] VITALS: BP 119/77; TEMP 97.9
--- NOTE | 2017-12-10 18:00 | PATH ---
Surgical Pathology Report Patient Name: SUKI CABRERA Med. Rec. #: [id number] /Age/Gender: 1965 (Age: 52) / F Account: [id number] Location: [facility] Taken: 12/09/2017 Received: 12/09/2017 Reported: 12/10/2017 Physicians: Pierce Bermudez M.D. Specimen(s) Received DEBRIDEMENT TISSUE Clinical History Breast cancer Bilateral mastectomy, TRAM flap Final Diagnosis DEBRIDEMENT TISSUE, BIOPSY: SKIN, UNDERLYING SUBCUTANEOUS TISSUE, AND SCANT FIBROADIPOSE TISSUE WITH MILD CHRONIC INFLAMMATION AND DERMAL FIBROSIS. Electronically Signed Juju Hutchins M.D. Gross Description Received in formalin labeled "debridement tissue" are multiple irregular fragments of pink-proctor soft tissue measuring 2 x 2 x 1 cm in aggregate. The entire specimen is submitted in 2 cassettes. MLSZ/12/09/2017 sanml/12/09/2017
== END 2017-12-09 15:15 | disposition home or self-care (01) ==
LOC: JASU-SURG 08:30
PROVIDERS: ATTEND Plastic Surgery
PROC: 0HX5XZZ Transfer Chest Skin, External Approach (ICD-10-PCS; 2017-12-09)
PROC: 0HBT0ZZ Excision of Right Breast, Open Approach (ICD-10-PCS; 2017-12-09)
PROC: 0HQT0ZZ Repair Right Breast, Open Approach (ICD-10-PCS; principal; 2017-12-09 10:00)
DX: T85.898A Other specified complication of other internal prosthetic devices, implants and grafts, initial encounter (principal); C50.911 Malignant neoplasm of unspecified site of right female breast
CPT/HCPCS: 88304-TC; 94760; J0131

== ENCOUNTER 2021-01-06 04:19 | Day surgery (SDC) | payer BC ==
[2021-01-01 11:00] VITALS: BMI 25.7
[2021-01-06] MEDS ORDERED: MIDAZOLAM HCL 2 MG/2 ML SINGLE DOSE VIAL ONE (10:40)
[2021-01-06 12:17] VITALS: BP 120/70
[2021-01-06 17:48] VITALS: PULSE 68; TEMP 18
== END 2021-01-06 13:15 | disposition home or self-care (01) ==
LOC: JASU-SURG 04:19
PROVIDERS: ATTEND Urology
PROC: 0TF4XZZ Fragmentation in Left Kidney Pelvis, External Approach (ICD-10-PCS; principal; 2021-01-06 10:00)
DX: N20.0 Calculus of kidney (principal)